=== PATIENT | female | born 1950 | race Caucasian/White ===

== ENCOUNTER 2017-05-30 15:49 | Inpatient (IN) | payer MEDICARE, OTHER ==
[2017-05-30] MEDS ORDERED: Sodium Chloride 0.9% 1,000 ML IV ONE (17:04)
[2017-05-30] MEDS ORDERED: Sodium Chloride 0.9% 10 ML Syringe FLUSH PRN ×2 (17:04→18:23)
[2017-05-30] MEDS ORDERED: Diatrizoate Meglumine/Diatrizoate Sodium 37% 120 ML Bottle PO ONE (18:23)
[2017-05-30] MEDS ORDERED: Iopamidol 612 MG/ML 150 ML Bottle IVPUSH ONE (18:23)
--- NOTE | 2017-05-30 18:45 | EDM.PDOC ---
ED HPI GENERAL MEDICAL PROBLEM - General Chief Complaint: Abdominal Pain Stated Complaint: LOWER ABDOMINAL PAIN Time Seen by Provider: 05/30/17 16:35 Source of Information: Reports: Patient History Limitations: Reports: No Limitations - History of Present Illness INITIAL COMMENTS - FREE TEXT/NARRATIVE: 66-year-old female female presents for evaluation and treatment of right lower quadrant abdominal pain. Patient reports that the abdominal pain started yesterday. She states that Wednesday she did not feel well. She reports that over the weekend she was helping her son move. She was more active then normal. She reports that the pain is worse with movement. She reports she had a temperature last night of 99. She states that the pain is located in her right lower quadrant. She reports last night she had difficulty sleeping to the due to the pain. States even her legs or even bothering her. She reports associated symptoms of decreased appetite, nausea and fatigue. She denies any vomiting, diarrhea, melena, hematochezia, dysuria or hematuria. She reports that her last bowel movement was today. No previous surgeries to her abdomen. She has only had about 2 tablespoons of eggs this morning around 6:30. Otherwise she has not had anything to eat today. 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 Location: Reports: Abdomen Improves with: Reports: Immobilization Worsens with: Reports: Movement Associated Symptoms: Reports: Loss of Appetite, Nausea/Vomiting Right Lower Abdomen Pain Score (Numeric/FACES): 1 - Related Data Allergies Allergy/AdvReac Type Severity Reaction Status Date / Time No Known Allergies Allergy Verified 10/15/14 12:59 Home Meds: Home Meds Multivitamin [Multi-Vitamin Daily] 1 tab PO DAILY 05/30/17 [History] Past Medical History Hematologic History: Reports: Other (See Below) Other Hematologic History: Vitamin D deficiency - Past Surgical History Neurological Surgical History: Reports: Other (See Below) Other Neurological Surgeries/Procedures: cyst removed from brain Social & Family History - Tobacco Use Smoking Status *Q: Former Smoker Used Tobacco, but Quit: Yes Month Tobacco Last Used: 2015 - Recreational Drug Use Recreational Drug Use: No ED ROS GENERAL - Review of Systems Review Of Systems: See Below Constitutional: Reports: Chills, Fatigue, Decreased Appetite GI/Abdominal: Reports: Abdominal Pain, Nausea. Denies: Constipation, Diarrhea, Hematochezia, Melena, Vomiting : Reports: No Symptoms. Denies: Dysuria, Flank Pain, Hematuria ED EXAM, GI/ABD - Physical Exam Exam: See Below Exam Limited By: No Limitations General Appearance: Alert, WD/WN, No Apparent Distress Respiratory/Chest: No Respiratory Distress, Lungs Clear, Normal Breath Sounds Cardiovascular: Normal Peripheral Pulses, Regular Rate, Rhythm, No Murmur GI/Abdominal: Normal Bowel Sounds, Soft, Tenderness (RLQ), Guarding, McBurney's Sign, Psoas Sign, Obturator Sign Neurological: Alert, Oriented, Normal Cognition Psychiatric: Normal Affect, Normal Mood Skin Exam: Warm, Dry, Normal Color Course - Vital Signs Last Recorded V/S: Last Vital Signs Temp 37.2 C 05/30/17 16:01 Pulse 74 05/30/17 16:01 Resp 16 05/30/17 16:01 BP 121/61 05/30/17 16:01 Pulse Ox 96 05/30/17 16:01 - Orders/Labs/Meds Orders: Active Orders 24 hr Category Date Time Status Communication Order [RC] ROUTINE Care 05/30/17 20:09 Active Patient to Empty Bladder [RC] ASDIRECTED Care 05/30/17 20:09 Active Peripheral IV Care [RC] . DIRECTED Care 05/30/17 17:04 Active Verify Patient Consent Obtain [RC] ASDIRECTED Care 05/30/17 20:09 Active Nothing Per Oral Diet [DIET] Diet 05/30/17 Dinner Active Abdomen Pelvis w Cont [CT] Stat Exams 05/30/17 17:04 Taken Lactated Ringers [Ringers, Lactated] 1,000 ml Med 05/30/17 19:54 Active IV .BOLUS Sodium Chloride 0.9% [Saline Flush] Med 05/30/17 17:04 Active 10 ml FLUSH ASDIRECTED PRN Sodium Chloride 0.9% [Saline Flush] Med 05/30/17 18:23 Active 10 ml FLUSH ONETIME PRN Peripheral IV Insertion Adult [OM.PC] Routine Oth 05/30/17 17:04 Ordered Resuscitation Status Routine Resus Stat 05/30/17 20:09 Ordered Medication Orders Lactated Ringer's (Ringers, Lactated) 1,000 mls @ 100 mls/hr IV .BOLUS ONE Stop: 05/31/17 05:53 Last Admin: 05/30/17 20:15 Dose: 100 mls/hr Sodium Chloride (Saline Flush) 10 ml FLUSH ASDIRECTED PRN PRN Reason: Keep Vein Open Last Admin: 05/30/17 17:22 Dose: 10 ml Sodium Chloride (Saline Flush) 10 ml FLUSH ONETIME PRN PRN Reason: IV FLUSH Last Admin: 05/30/17 18:52 Dose: 10 ml Labs: Laboratory Tests 05/30/17 05/30/17 05/30/17 Range/Units 16:13 16:13 18:39 WBC 16.56 H (3.98-10.04) K/mm3 RBC 4.36 (3.98-5.22) M/mm3 Hgb 13.3 (11.2-15.7) gm/L Hct 40.3 (34.1-44.9) % MCV 92.4 (79.4-94.8) fl MCH 30.5 (25.6-32.2) pg MCHC 33.0 (32.2-35.5) g/dl RDW Std Deviation 45.8 (36.4-46.3) fL Plt Count 176 L (182-369) K/mm3 MPV 11.0 (9.4-12.3) fl Neutrophils % (Manual) 72 H (40-60) % Band Neutrophils % 0 (0-10) % Lymphocytes % (Manual) 20 (20-40) % Atypical Lymphs % 0 % Monocytes % (Manual) 8 (2-10) % Eosinophils % (Manual) 0 L (0.7-5.8) % Basophils % (Manual) 0 L (0.1-1.2) Platelet Estimate Adequate RBC Morph Comment Normal Sodium 136 (136-145) mEq/L Potassium 3.6 (3.5-5.1) mEq/L Chloride 100 (98-107) mEq/L Carbon Dioxide 29 (21-32) mEq/L Anion Gap 10.6 (5-15) BUN 10 (7-18) mg/dL Creatinine 0.9 (0.55-1.02) mg/dL Est Cr Clr Drug Dosing 47.97 mL/min Estimated GFR (MDRD) > 60 (>60) mL/min BUN/Creatinine Ratio 11.1 L (14-18) Glucose 122 H (80-115) mg/dL Calcium 8.7 (8.5-10.1) mg/dL Total Bilirubin 0.4 (0.2-1.0) mg/dL AST 18 (15-37) U/L ALT 21 (14-59) U/L Alkaline Phosphatase 76 (46-116) U/L C-Reactive Protein 18.3 H* (<1.0) mg/dL Total Protein 7.8 (6.4-8.2) g/dl Albumin 3.4 (3.4-5.0) g/dl Globulin 4.4 gm/dL Albumin/Globulin Ratio 0.8 L (1-2) Urine Color Light yellow (Yellow) Urine Appearance Clear (Clear) Urine pH 7.0 (5.0-8.0) Ur Specific [place] 1.015 (1.005-1.030) Urine Protein Negative (Negative) Urine Glucose (UA) Negative (Negative) Urine Ketones Negative (Negative) Urine Occult Blood Trace-lysed H (Negative) Urine Nitrite Negative (Negative) Urine Bilirubin Negative (Negative) Urine Urobilinogen 0.2 (0.2-1.0) Ur Leukocyte Esterase Negative (Negative) Urine RBC 0-5 (0-5) /hpf Urine WBC 0-5 (0-5) /hpf Ur Epithelial Cells 0-5 (0-5) /hpf Urine Bacteria Occasional (FEW) /hpf Urine Mucus Not seen (FEW) /hpf Meds: Medications Generic Name Dose Route Start Last Admin Trade Name Freq PRN Reason Stop Dose Admin Lactated Ringer's 1,000 mls @ 100 mls/hr 05/30/17 19:54 05/30/17 20:15 Ringers, Lactated IV 05/31/17 05:53 100 mls/hr .BOLUS ONE Administration Sodium Chloride 10 ml 05/30/17 17:04 05/30/17 17:22 Saline Flush FLUSH 10 ml ASDIRECTED PRN Administration Keep Vein Open Sodium Chloride 10 ml 05/30/17 18:23 05/30/17 18:52 Saline Flush FLUSH 10 ml ONETIME PRN Administration IV FLUSH Discontinued Medications Generic Name Dose Route Start Last Admin Trade Name Freq PRN Reason Stop Dose Admin Diatrizoate Meglum/Diatrizoate Sod 90 ml 05/30/17 18:23 05/30/17 18:52 Gastrografin 37% PO 05/30/17 18:24 90 ml ONETIME ONE Administration Sodium Chloride 1,000 mls @ 999 mls/hr 05/30/17 17:04 05/30/17 17:22 Normal Saline IV 05/30/17 18:04 999 mls/hr ONETIME ONE Administration Cefoxitin Sodium 2 gm/ Sodium 100 mls @ 200 mls/hr 05/30/17 19:46 05/30/17 20 :22 Chloride IV 05/30/17 20:15 Not Given ONETIME ONE Cefoxitin Sodium Confirm 05/30/17 19:56 05/30/17 20:22 Mefoxin In Dextrose,Iso-Osm 2 Gm/50 Ml Administered 05/30/17 19:57 Not Given Dose 50 mls @ as directed .ROUTE .STK-MED ONE Cefoxitin Sodium 2 gm/ Premix 50 mls @ 100 mls/hr 05/30/17 19:56 05/30/17 20: 16 IV 05/30/17 20:25 100 mls/hr ONETIME ONE Administration Iopamidol 125 ml 05/30/17 18:23 05/30/17 18:51 Isovue-300 (61%) IVPUSH 05/30/17 18:24 125 ml ONETIME ONE Administration Metoclopramide HCl 5 mg 05/30/17 19:48 05/30/17 20:13 Reglan IVPUSH 05/30/17 19:49 5 mg ONETIME ONE Administration - Radiology Interpretation Free Text/Narrative:: CT of the abdomen and pelvis with IV and oral contrast impression per Vrad: acute appendicitis, suspected to be ruptured, no evidence of free air/ perforation or abscess formation. Mild bladder wall thickening. This is non-specific finding but can be seen with cystitis. Recommend clinical correlation. Incidental 3.2 cm left ovarian adnexal cystic lesion. 3.2 cm left ovarian/ adnexal cystic lesion. This has a density higher than expected for a simple cyst. It could represent a mildly complex cyst. Follow-up pelvic ultrasound is recommended for further evaluation, not necessarily on an emergent basis. CT Results Date: 05/30/17 - Re-Assessments/Exams Free Text/Narrative Re-Assessment/Exam: 05/30/17 19:48 Labs returned. White blood cell count is 16.56 with no bands, hemoglobin is 13.3 and platelets are 176. Sodium is 136, potassium 3.6 chloride is 100. Anion gap is 10.6. Glucose is 122. CRP is elevated 18.3. UA has trace I have asked the patient several times over the course of her ER stay she would like anything for pain. She continues to decline any medication for pain. I reviewed the CT results with the patient. She has now vomited. We will give 5 mg IV Reglan. Spoke with Dr. Hutchinson, surgeon cushion former. Asked for 2 g IV cefoxitin. Will call in the OR crew and plan for an appendectomy. Departure - Departure Time of Disposition: 21:04 Disposition: Refer to Observation Condition: Serious Clinical Impression: Left ovarian cyst Appendicitis, acute Qualifiers: Acute appendicitis type: with localized peritonitis Qualified Code(s): K35.3 - Acute appendicitis with localized peritonitis - Discharge Information Forms: ED Department Discharge Additional Instructions: Patient will go to the OR tonight for an acute appendicitis. Dr. Hutchinson has been notified and is at the bedside evaluating the patient. I will have her follow-up her primary care provider as soon she is able to for the ultrasound of the left ovarian cyst. - My Orders Last 24 Hours: My Active Orders 05/30/17 17:04 Peripheral IV Care [RC] . DIRECTED Abdomen Pelvis w Cont [CT] Stat Sodium Chloride 0.9% [Saline Flush] 10 ml FLUSH ASDIRECTED PRN Peripheral IV Insertion Adult [OM.PC] Routine 05/30/17 18:23 Sodium Chloride 0.9% [Saline Flush] 10 ml FLUSH ONETIME PRN 05/30/17 19:54 Lactated Ringers [Ringers, Lactated] 1,000 ml IV .BOLUS - Assessment/Plan Last 24 Hours: My Active Orders 05/30/17 17:04 Peripheral IV Care [RC] . DIRECTED Abdomen Pelvis w Cont [CT] Stat Sodium Chloride 0.9% [Saline Flush] 10 ml FLUSH ASDIRECTED PRN Peripheral IV Insertion Adult [OM.PC] Routine 05/30/17 18:23 Sodium Chloride 0.9% [Saline Flush] 10 ml FLUSH ONETIME PRN 05/30/17 19:54 Lactated Ringers [Ringers, Lactated] 1,000 ml IV .BOLUS
[2017-05-30] MEDS ORDERED: cefOXitin 2 GM in Sodium Chloride 0.9% 100 ML IV ONE (19:46)
[2017-05-30] MEDS ORDERED: Metoclopramide 10 MG/2 ML SDV IVPUSH ONE (19:48)
[2017-05-30] MEDS ORDERED: Lactated Ringers 1,000 ML IV ONE (19:54)
[2017-05-30] MEDS ORDERED: cefOXitin 2 GM in Premix Bag 1 BAG IV ONE (19:56)
--- NOTE | 2017-05-30 20:15 | PCM.HP ---
H&P History of Present Illness - General Date of Service: 05/30/17 Source of Information: Patient History Limitations: Reports: No Limitations - History of Present Illness Initial Comments - Free Text/Narative: 66-year-old female was in her usual state of good health until yesterday when she experienced periumbilical crampy discomfort and nausea. She lost her appetite, and over the next several hours she noticed that the pain migrated to her right lower quadrant. She had mild nausea overnight. She had her first episode of emesis today. She's had very little to eat all day. She's had no history of diarrhea or constipation. Because she failed to improve she presented to the emergency room. A CT scan of her abdomen was performed and had imaging features consistent with acute possible perforated appendicitis. Her white blood cell count is 16,000. I was asked to see her in consultation. Right Lower Abdomen Pain Score (Numeric/FACES): 1 - Related Data Allergies/Adverse Reactions: Allergies Allergy/AdvReac Type Severity Reaction Status Date / Time No Known Allergies Allergy Verified 10/15/14 12:59 Home Medications: Home Meds Multivitamin [Multi-Vitamin Daily] 1 tab PO DAILY 05/30/17 [History] Past Medical History Hematologic History: Reports: Other (See Below) Other Hematologic History: Vitamin D deficiency - Past Surgical History Neurological Surgical History: Reports: Other (See Below) Other Neurological Surgeries/Procedures: cyst removed from brain Social & Family History - Tobacco Use Smoking Status *Q: Former Smoker Used Tobacco, but Quit: Yes Month Tobacco Last Used: 2015 - Recreational Drug Use Recreational Drug Use: No H&P Review of Systems - Review of Systems: Review Of Systems: See Below Gastrointestinal: Reports: Abdominal Pain Exam - Exam Exam: See Below - Vital Signs Vital Signs: Last Vital Signs Temp 37.2 C 05/30/17 16:01 Pulse 74 05/30/17 16:01 Resp 16 05/30/17 16:01 BP 121/61 05/30/17 16:01 Pulse Ox 96 05/30/17 16:01 Weight: 68.039 kg - Exam General: Alert, Oriented, Mild Distress HEENT: Conjunctiva Clear, EOMI, Hearing Intact Neck: Supple, Trachea Midline Lungs: Normal Respiratory Effort Cardiovascular: Regular Rate, Regular Rhythm Abdomen: Soft, McBurney's Sign (Female) Exam: Deferred Rectal (Female) Exam: Deferred Back Exam: Full Range of Motion Extremities: Normal Inspection Skin: Warm, Dry, Intact Neuro Extensive - Mental Status: Alert, Oriented x3, Normal Mood/Affect Psychiatric: Normal Affect - Patient Data Lab Results Last 24 hrs: Laboratory Results - last 24 hr 05/30/17 05/30/17 05/30/17 Range/Units 16:13 16:13 18:39 WBC 16.56 H (3.98-10.04) K/mm3 RBC 4.36 (3.98-5.22) M/mm3 Hgb 13.3 (11.2-15.7) gm/L Hct 40.3 (34.1-44.9) % MCV 92.4 (79.4-94.8) fl MCH 30.5 (25.6-32.2) pg MCHC 33.0 (32.2-35.5) g/dl RDW Std Deviation 45.8 (36.4-46.3) fL Plt Count 176 L (182-369) K/mm3 MPV 11.0 (9.4-12.3) fl Neutrophils % (Manual) 72 H (40-60) % Band Neutrophils % 0 (0-10) % Lymphocytes % (Manual) 20 (20-40) % Atypical Lymphs % 0 % Monocytes % (Manual) 8 (2-10) % Eosinophils % (Manual) 0 L (0.7-5.8) % Basophils % (Manual) 0 L (0.1-1.2) Platelet Estimate Adequate RBC Morph Comment Normal Sodium 136 (136-145) mEq/L Potassium 3.6 (3.5-5.1) mEq/L Chloride 100 (98-107) mEq/L Carbon Dioxide 29 (21-32) mEq/L Anion Gap 10.6 (5-15) BUN 10 (7-18) mg/dL Creatinine 0.9 (0.55-1.02) mg/dL Est Cr Clr Drug Dosing 47.97 mL/min Estimated GFR (MDRD) > 60 (>60) mL/min BUN/Creatinine Ratio 11.1 L (14-18) Glucose 122 H (80-115) mg/dL Calcium 8.7 (8.5-10.1) mg/dL Total Bilirubin 0.4 (0.2-1.0) mg/dL AST 18 (15-37) U/L ALT 21 (14-59) U/L Alkaline Phosphatase 76 (46-116) U/L C-Reactive Protein 18.3 H* (<1.0) mg/dL Total Protein 7.8 (6.4-8.2) g/dl Albumin 3.4 (3.4-5.0) g/dl Globulin 4.4 gm/dL Albumin/Globulin Ratio 0.8 L (1-2) Urine Color Light yellow (Yellow) Urine Appearance Clear (Clear) Urine pH 7.0 (5.0-8.0) Ur Specific [place] 1.015 (1.005-1.030) Urine Protein Negative (Negative) Urine Glucose (UA) Negative (Negative) Urine Ketones Negative (Negative) Urine Occult Blood Trace-lysed H (Negative) Urine Nitrite Negative (Negative) Urine Bilirubin Negative (Negative) Urine Urobilinogen 0.2 (0.2-1.0) Ur Leukocyte Esterase Negative (Negative) Urine RBC 0-5 (0-5) /hpf Urine WBC 0-5 (0-5) /hpf Ur Epithelial Cells 0-5 (0-5) /hpf Urine Bacteria Occasional (FEW) /hpf Urine Mucus Not seen (FEW) /hpf Result Diagrams: 05/30/17 16:13 05/30/17 16:13 *Q Meaningful Use (ADM) - VTE *Q VTE Criteria *Q: - Stroke *Q Stroke Criteria *Q: - AMI *Q AMI Criteria *Q: - Problem List (1) Appendicitis, acute SNOMED Code(s): 52634797 ICD Code: K35.80 - UNSPECIFIED ACUTE APPENDICITIS Status: Acute Priority : High Current Visit: Yes Qualifiers: Acute appendicitis type: with localized peritonitis Qualified Code(s): K35.3 - Acute appendicitis with localized peritonitis Problem List Initiated/Reviewed/Updated: Yes Orders Last 24hrs: Active Orders 24 hr Category Date Time Status Communication Order [RC] ROUTINE Care 05/30/17 20:09 Ordered Patient to Empty Bladder [RC] ASDIRECTED Care 05/30/17 20:09 Ordered Peripheral IV Care [RC] . DIRECTED Care 05/30/17 17:04 Active Verify Patient Consent Obtain [RC] ASDIRECTED Care 05/30/17 20:09 Ordered Nothing Per Oral Diet [DIET] Diet 05/30/17 Dinner Ordered Abdomen Pelvis w Cont [CT] Stat Exams 05/30/17 17:04 Taken Lactated Ringers [Ringers, Lactated] 1,000 ml Med 05/30/17 19:54 Active IV .BOLUS Sodium Chloride 0.9% [Saline Flush] Med 05/30/17 17:04 Active 10 ml FLUSH ASDIRECTED PRN Sodium Chloride 0.9% [Saline Flush] Med 05/30/17 18:23 Active 10 ml FLUSH ONETIME PRN cefOXitin [Mefoxin in Dextrose,Iso-Osm 2 GM/50 ML] 2 gm Med 05/30/17 19:56 Active Premix Bag 1 bag IV ONETIME Peripheral IV Insertion Adult [OM.PC] Routine Oth 05/30/17 17:04 Ordered Resuscitation Status Routine Resus Stat 05/30/17 20:09 Ordered Medication Orders Lactated Ringer's (Ringers, Lactated) 1,000 mls @ 100 mls/hr IV .BOLUS ONE Stop: 05/31/17 05:53 Cefoxitin Sodium 2 gm/ Premix 50 mls @ 100 mls/hr IV ONETIME ONE Stop: 05/30/17 20:25 Sodium Chloride (Saline Flush) 10 ml FLUSH ASDIRECTED PRN PRN Reason: Keep Vein Open Last Admin: 05/30/17 17:22 Dose: 10 ml Sodium Chloride (Saline Flush) 10 ml FLUSH ONETIME PRN PRN Reason: IV FLUSH Last Admin: 05/30/17 18:52 Dose: 10 ml Assessment/Plan Comment:: imp: Acute possible perforated appendicitis. Surgery indicated. We'll proceed as soon as possible. plan: Laparoscopic possible open appendectomy. The benefits and risk of the procedure were explained the patient. The alternatives were discussed as well. She and her have both asked me to proceed. They had no further questions.
[2017-05-30] MEDS ORDERED: Bupivacaine 0.5%/EPINEPHrine 1:200,000 50 ML MDV ONE (21:09)
[2017-05-30] MEDS ORDERED: Lidocaine 1% with EPINEPHrine 1:100,000 20 ML MDV ONE (21:09)
--- NOTE | 2017-05-30 21:59 | PCM.PREANE ---
Preanesthetic Assessment - Anesthesia/Transfusion/Family Hx Anesthesia History: Prior Anesthesia Without Reaction Family History of Anesthesia Reaction: No Transfusion History: No Prior Transfusion(s) - Review of Systems General: Chills Pulmonary: No Symptoms Cardiovascular: No Symptoms Gastrointestinal: Abdominal pain (2 days) Neurological: No Symptoms Other: Reports: None - Physical Assessment NPO Status Date: 05/30/17 NPO Status Time: 16:00 (1815 finished contrast) O2 Sat by Pulse Oximetry: 96 Respiratory Rate: 16 Vital Signs: Last Vital Signs Temp 99.0 F 05/30/17 16:01 Pulse 74 05/30/17 16:01 Resp 16 05/30/17 16:01 BP 121/61 05/30/17 16:01 Pulse Ox 96 05/30/17 16:01 Height: 5 ft 2 in Weight: 68.039 kg ASA Class: 2E Mental Status: Alert & Oriented x3 Airway Class: Mallampati = 1 Dentition: Reports: Normal Dentition, Broken Tooth/Teeth, Missing Tooth/Teeth Thyro-Mental Finger Breadths: 3 Mouth Opening Finger Breadths: 3 ROM/Head Extension: Full Lungs: Clear to auscultation, Normal respiratory effort Cardiovascular: Regular Rate, Regular Rhythm - Lab Values: Laboratory Last Values WBC 16.56 K/mm3 (3.98-10.04) H 05/30/17 16:13 RBC 4.36 M/mm3 (3.98-5.22) 05/30/17 16:13 Hgb 13.3 gm/L (11.2-15.7) 05/30/17 16:13 Hct 40.3 % (34.1-44.9) 05/30/17 16:13 MCV 92.4 fl (79.4-94.8) 05/30/17 16:13 MCH 30.5 pg (25.6-32.2) 05/30/17 16:13 MCHC 33.0 g/dl (32.2-35.5) 05/30/17 16:13 RDW Std Deviation 45.8 fL (36.4-46.3) 05/30/17 16:13 Plt Count 176 K/mm3 (182-369) L 05/30/17 16:13 MPV 11.0 fl (9.4-12.3) 05/30/17 16:13 Neutrophils % (Manual) 72 % (40-60) H 05/30/17 16:13 Band Neutrophils % 0 % (0-10) 05/30/17 16:13 Lymphocytes % (Manual) 20 % (20-40) 05/30/17 16:13 Atypical Lymphs % 0 % 05/30/17 16:13 Monocytes % (Manual) 8 % (2-10) 05/30/17 16:13 Eosinophils % (Manual) 0 % (0.7-5.8) L 05/30/17 16:13 Basophils % (Manual) 0 (0.1-1.2) L 05/30/17 16:13 Platelet Estimate Adequate 05/30/17 16:13 RBC Morph Comment Normal 05/30/17 16:13 Sodium 136 mEq/L (136-145) 05/30/17 16:13 Potassium 3.6 mEq/L (3.5-5.1) 05/30/17 16:13 Chloride 100 mEq/L (98-107) 05/30/17 16:13 Carbon Dioxide 29 mEq/L (21-32) 05/30/17 16:13 Anion Gap 10.6 (5-15) 05/30/17 16:13 BUN 10 mg/dL (7-18) 05/30/17 16:13 Creatinine 0.9 mg/dL (0.55-1.02) 05/30/17 16:13 Est Cr Clr Drug Dosing 47.97 mL/min 05/30/17 16:13 Estimated GFR (MDRD) > 60 mL/min (>60) 05/30/17 16:13 BUN/Creatinine Ratio 11.1 (14-18) L 05/30/17 16:13 Glucose 122 mg/dL (80-115) H 05/30/17 16:13 Calcium 8.7 mg/dL (8.5-10.1) 05/30/17 16:13 Total Bilirubin 0.4 mg/dL (0.2-1.0) 05/30/17 16:13 AST 18 U/L (15-37) 05/30/17 16:13 ALT 21 U/L (14-59) 05/30/17 16:13 Alkaline Phosphatase 76 U/L (46-116) 05/30/17 16:13 C-Reactive Protein 18.3 mg/dL (<1.0) H* 05/30/17 16:13 Total Protein 7.8 g/dl (6.4-8.2) 05/30/17 16:13 Albumin 3.4 g/dl (3.4-5.0) 05/30/17 16:13 Globulin 4.4 gm/dL 05/30/17 16:13 Albumin/Globulin Ratio 0.8 (1-2) L 05/30/17 16:13 Urine Color Light yellow (Yellow) 05/30/17 18:39 Urine Appearance Clear (Clear) 05/30/17 18:39 Urine pH 7.0 (5.0-8.0) 05/30/17 18:39 Ur Specific [place] 1.015 (1.005-1.030) 05/30/17 18:39 Urine Protein Negative (Negative) 05/30/17 18:39 Urine Glucose (UA) Negative (Negative) 05/30/17 18:39 Urine Ketones Negative (Negative) 05/30/17 18:39 Urine Occult Blood Trace-lysed (Negative) H 05/30/17 18:39 Urine Nitrite Negative (Negative) 05/30/17 18:39 Urine Bilirubin Negative (Negative) 05/30/17 18:39 Urine Urobilinogen 0.2 (0.2-1.0) 05/30/17 18:39 Ur Leukocyte Esterase Negative (Negative) 05/30/17 18:39 Urine RBC 0-5 /hpf (0-5) 05/30/17 18:39 Urine WBC 0-5 /hpf (0-5) 05/30/17 18:39 Ur Epithelial Cells 0-5 /hpf (0-5) 05/30/17 18:39 Urine Bacteria Occasional /hpf (FEW) 05/30/17 18:39 Urine Mucus Not seen /hpf (FEW) 05/30/17 18:39 - Imaging/EKG Impressions: 05/30/17 EKG SR Rate 89 - Allergies Allergies/Adverse Reactions: Allergies Allergy/AdvReac Type Severity Reaction Status Date / Time No Known Allergies Allergy Verified 10/15/14 12:59 - Blood Blood Available: No - Acknowledgements Anesthesia Type Planned: General Anesthesia Pt an Appropriate Candidate for the Planned Anesthesia: Yes Alternatives and Risks of Anesthesia Discussed w Pt/Guardian: Yes Pt/Guardian Understands and Agrees with Anesthesia Plan: Yes PreAnesthesia Questionnaire Cardiovascular History: Reports: None Respiratory History: Reports: None Musculoskeletal History: Reports: Other (See Below) (siatica both lets at times) Hematologic History: Reports: Other (See Below) Other Hematologic History: Vitamin D deficiency - Past Surgical History Head Surgeries/Procedures: Reports: Other (See Below) (cyst on brain sep 2015 -) Neurological Surgical History: Reports: Other (See Below) Other Neurological Surgeries/Procedures: cyst removed from brain - SUBSTANCE USE Smoking Status *Q: Former Smoker (quit february 2016 50 year smoker) Tobacco Use Within Last Twelve Months: Cigarettes Second Hand Smoke Exposure: No Days Per Week of Alcohol Use: 0 (social) Recreational Drug Use History: No - HOME MEDS Home Medications: Home Meds Multivitamin [Multi-Vitamin Daily] 1 tab PO DAILY 05/30/17 [History] - CURRENT (IN HOUSE) MEDS Current Meds: Current Medications Lactated Ringer's (Ringers, Lactated) 1,000 mls @ 100 mls/hr IV .BOLUS ONE Stop: 05/31/17 05:53 Last Admin: 05/30/17 20:15 Dose: 100 mls/hr Sodium Chloride (Saline Flush) 10 ml FLUSH ASDIRECTED PRN PRN Reason: Keep Vein Open Last Admin: 05/30/17 17:22 Dose: 10 ml Sodium Chloride (Saline Flush) 10 ml FLUSH ONETIME PRN PRN Reason: IV FLUSH Last Admin: 05/30/17 18:52 Dose: 10 ml Discontinued Medications Bupivacaine HCl/Epinephrine Bitart (Marcaine 0.5%/Epinephrine 1:200,000) Confirm Administered Dose 50 ml .ROUTE .STK-MED ONE Stop: 05/30/17 21:10 Diatrizoate Meglum/Diatrizoate Sod (Gastrografin 37%) 90 ml PO ONETIME ONE Stop: 05/30/17 18:24 Last Admin: 05/30/17 18:52 Dose: 90 ml Fentanyl (Sublimaze) Confirm Administered Dose 250 mcg .ROUTE .STK-MED ONE Stop: 05/30/17 22:01 Sodium Chloride (Normal Saline) 1,000 mls @ 999 mls/hr IV ONETIME ONE Stop: 05/30/17 18:04 Last Admin: 05/30/17 17:22 Dose: 999 mls/hr Cefoxitin Sodium 2 gm/ Sodium (Chloride) 100 mls @ 200 mls/hr IV ONETIME ONE Stop: 05/30/17 20:15 Last Admin: 05/30/17 20:22 Dose: Not Given Cefoxitin Sodium (Mefoxin In Dextrose,Iso-Osm 2 Gm/50 Ml) Confirm Administered Dose 50 mls @ as directed .ROUTE .STK-MED ONE Stop: 05/30/17 19:57 Last Admin: 05/30/17 20:22 Dose: Not Given Cefoxitin Sodium 2 gm/ Premix 50 mls @ 100 mls/hr IV ONETIME ONE Stop: 05/30/17 20:25 Last Admin: 05/30/17 20:16 Dose: 100 mls/hr Lidocaine HCl (Xylocaine-Mpf 1%) Confirm Administered Dose 4 mls @ as directed .ROUTE .STK-MED ONE Stop: 05/30/17 22:01 Iopamidol (Isovue-300 (61%)) 125 ml IVPUSH ONETIME ONE Stop: 05/30/17 18:24 Last Admin: 05/30/17 18:51 Dose: 125 ml Lidocaine/Epinephrine (Xylocaine 1% With Epinephrine 1:100,000) Confirm Administered Dose 20 ml .ROUTE .STK-MED ONE Stop: 05/30/17 21:10 Metoclopramide HCl (Reglan) 5 mg IVPUSH ONETIME ONE Stop: 05/30/17 19:49 Last Admin: 05/30/17 20:13 Dose: 5 mg Midazolam HCl (Versed 1 Mg/Ml) Confirm Administered Dose 2 mg .ROUTE .STK-MED ONE Stop: 05/30/17 22:01 Ondansetron HCl (Zofran) Confirm Administered Dose 4 mg .ROUTE .STK-MED ONE Stop: 05/30/17 22:01 Propofol (Diprivan 20 Ml) Confirm Administered Dose 200 mg .ROUTE .STK-MED ONE Stop: 05/30/17 22:01 Rocuronium [place] (Zemuron) Confirm Administered Dose 50 mg .ROUTE .STK-MED ONE Stop: 05/30/17 22:01
[2017-05-30] MEDS ORDERED: Ondansetron 4 MG/2 ML SDV ONE (22:00)
[2017-05-30] MEDS ORDERED: Lidocaine 1% 4 ML ONE (22:00)
[2017-05-30] MEDS ORDERED: Propofol 200 MG/20 ML SDV ONE (22:00)
[2017-05-30] MEDS ORDERED: fentaNYL 250 MCG/5 ML SDV ONE ×2 (22:00→23:49)
[2017-05-30] MEDS ORDERED: Midazolam 1 MG/ML 2 ML SDV ONE (22:00)
[2017-05-30] MEDS ORDERED: Rocuronium 50 MG/5 ML Vial ONE (22:00)
[2017-05-30] MEDS ORDERED: Succinylcholine/Normal Saline 100 MG/5 ML Syringe ONE (22:35)
[2017-05-30] MEDS ORDERED: fentaNYL 100 MCG/2 ML SDV IVPUSH PRN (22:37)
[2017-05-30] MEDS ORDERED: Ondansetron 4 MG/2 ML SDV IVPUSH PRN (22:37)
[2017-05-30] MEDS ORDERED: HYDROmorphone 1 MG/ML Syringe IVPUSH PRN (22:37)
[2017-05-30] MEDS ORDERED: ePHEDrine/Normal Saline 25 MG/5 ML Syringe ONE (22:44)
[2017-05-30] MEDS ORDERED: Phenylephrine/Normal Saline 100 MCG/ML 10 ML Syringe ONE (22:46)
[2017-05-30] MEDS ORDERED: Lactated Ringers 1,000 ML ONE (23:05)
[2017-05-30] MEDS ORDERED: HYDROmorphone 0.5 MG/0.5 ML Syringe IVPUSH PRN (23:11)
[2017-05-30] MEDS ORDERED: HYDROmorphone 1 MG/ML Syringe ONE (23:34)
[2017-05-31] MEDS ORDERED: Neostigmine Methylsulfate 1 MG/ML 5 ML Syringe ONE (00:09)
[2017-05-31] MEDS ORDERED: Lactated Ringers 1,000 ML ONE (00:22)
--- NOTE | 2017-05-31 00:40 | PCM.POSTAN ---
POST ANESTHESIA ASSESSMENT - MENTAL STATUS Mental Status: alert, oriented - VITAL SIGNS Pulse Rate: 89 SaO2: 96 Resp Rate: 13 Blood Pressure: 101/67 Temperature: 97.8 F - RESPIRATORY Respiratory Status: respiratory rate WNL, airway patent, O2 saturation stable, supplemental oxygen - CARDIOVASCULAR CV Status: pulse rate WNL, blood pressure stable - GASTROINTESTINAL GI Status: no symptoms - PAIN Pain Score: 0 (denies) - POST OP HYDRATION Hydration Status: adequate & stable
[2017-05-31] MEDS ORDERED: Piperacillin/Tazobactam 4.5 GM in Sodium Chloride 0.9% 100 ML IV ONE (01:00)
--- NOTE | 2017-05-31 01:02 | PCM.OPNOTE ---
- General Post-Op/Procedure Note Date of Surgery/Procedure: 05/31/17 Operative Procedure(s): Laparoscopic exploration followed by conversion to a laparotomy with ileocecectomy and primary stapled [id number] ileal to right colon anastomosis Findings: Short appendiceal gangrenous stump blowout with necrotic cecal base and dense inflammatory reaction of the entire cecum and surrounding soft tissues. There was fecal spillage and local fecal peritonitis as well as a fecalith in the right lower quadrant. There was no eitan purulence seen. Pre Op Diagnosis: Perforated acute appendicitis Post-Op Diagnosis: Perforated gangrenous appendicitis with necrotic cecal base and local fecal peritonitis Anesthesia Technique: General ET tube Primary Surgeon: Parish Hutchinson Pathology: Short stump of ileum and cecum EBL in mLs: 100 Complications: None Condition: Good Free Text/Narrative:: After adequate general endotracheal tube anesthesia was obtained the patient's abdomen was prepped for a laparoscopic appendectomy. A supraumbilical incision was made with a 15 blade followed by insertion of a 12 mm camera port. CO2 pneumoperitoneum was obtained. A 5 mm working port was placed in the suprapubic region and in the left lower quadrant. Exploration revealed dense inflammatory change in the right lower quadrant. With mobilization of the cecum the appendix was not visualized however there was a fecalith and fecal spillage along with dense induration and inflammatory reaction present in the retrocecal area. At this point I opted to convert the procedure to an open case given the necrotic cecal base. Photographs are taken for the patient for the record. The midline incision the lower abdomen was made from just above the umbilicus down to the suprapubic region with a 10 blade. After irrigating the fecal contamination I mobilized the right colon using a combination of blunt finger and Metzenbaum scissor dissection along the white line up to the hepatic flexure and then into the transverse colonic area proximally. Once this was done a window was made in the ileal mesentery and I took a MIL stapler and fired it across this area. [place] up the right colon I then fired the stapling device across the colon as well. The specimen was removed after I took down the mesentery between clamps using 3-0 Vicryl suture to secure the mesenteric vessels. I performed a side-to- side anastomosis between the terminal ileum and right colon. This was done using a MIL 55 linear stapler. The TA 90 stapler was used to close the entry sites. I then took interrupted 3-0 silk sero muscular Lembert sutures to close the TA 90 site. 1 L of warm irrigation fluid was used to rinse out the right lower quadrant. The omentum was packed in the right lower quadrant. The abdomen was irrigated out with saline. I closed the abdominal incision with a running # 1 PDS suture. I placed a 10 mm flat Toney-Myers drain in the subcutaneous tissues bringing it out through a separate stab incision. The drain was secured to the skin with a 2-0 nylon. The skin was closed with jeniffer. Gauze and silk tape were used for the dressing. A Covarrubias was placed at the end of the case. There were no procedural complications.
[2017-05-31] MEDS: Sodium Chloride 0.9% 1,000 ML IV SCH ×3 (02:39→17:54)
[2017-05-31] MEDS: Acetaminophen/oxyCODONE 325-5 MG Tab PO PRN ×3 (05:25→19:26)
[2017-05-31] MEDS: Piperacillin/Tazobactam 4.5 GM in Sodium Chloride 0.9% 100 ML IV SCH ×2 (08:36→16:56)
[2017-05-31] MEDS ORDERED: Pneumococcal Polyvalent-23 Vaccine 0.5 ML SDV IM ONE (08:47)
--- NOTE | 2017-05-31 09:51 | CT ---
CT abdomen and pelvis Technique: Multiple axial sections were obtained through the abdomen and pelvis. Intravenous and oral contrast was utilized. Comparison: No previous abdominal imaging. Findings: Inflammatory change identified within the right lower abdomen. Dilated appendix is seen which contains appendicoliths. Findings are compatible with appendicitis. There is some free fluid within the pelvis which could represent reactive fluid or pus from the appendicitis. Visualized lung bases show nothing acute. Liver shows no focal parenchymal abnormality. Minimal hiatal hernia is seen. Spleen appears within normal limits. Adrenal glands show no nodule. Kidneys show contrast enhancement without hydronephrosis or mass. Pancreas is within normal limits. Aorta and iliac vessels show atherosclerotic change without aneurysmal dilatation. No retroperitoneal adenopathy or mesenteric abnormalities are seen. No additional pelvic abnormality is identified. Delayed images through the bladder show contrast within the distal ureters and bladder. Cystic structure noted within the left ovary measuring 3.2 cm. Bladder wall shows minimal thickening which is likely incidental. Impression: 1. Findings compatible with appendicitis. Small amount of fluid within the pelvis either reactive or possibly due to pus. 2. Small 3.2 cm cyst within the left ovary. Follow-up ultrasound could be obtained of the pelvis in 6 months to further evaluate. 3. Other findings felt to be incidental as described above. Diagnostic code #5 I agree with preliminary report issued by [facility] ([facility] report finalized on 05/30/17, 8:42 PM Central Time)
--- NOTE | 2017-05-31 10:14 | PCM.SURGPN ---
- General Info Date of Service: 05/31/17 POD#: 1 Functional Status: Reports: pain controlled, tolerating diet (Liquids) - Review of Systems Gastrointestinal: Reports: Abdominal pain (Notes surgical site incisional discomfort but the appendiceal discomfort has improved.) - Patient Data Vitals - most recent: Last Vital Signs Temp 36.8 C 05/31/17 07:33 Pulse 95 05/31/17 07:33 Resp 20 05/31/17 07:33 BP 99/59 L 05/31/17 07:33 Pulse Ox 90 L 05/31/17 09:39 Weight - most recent: 68.901 kg I&O - last 24 hours: Intake & Output 05/30/17 05/31/17 05/31/17 22:59 06:59 14:59 Intake Total 703 Output Total 325 Balance 378 Med Orders - Current: Current Medications Hydromorphone HCl (Dilaudid) 0.5 mg IVPUSH Q1H PRN PRN Reason: Pain (severe 7-10) Sodium Chloride (Normal Saline) 1,000 mls @ 125 mls/hr IV ASDIRECTED MELISSA Last Admin: 05/31/17 02:39 Dose: 125 mls/hr Piperacillin Sod/Tazobactam (Sod 4.5 gm/ Sodium Chloride) 100 mls @ 25 mls/hr IV Q8H [facility] Last Admin: 05/31/17 08:36 Dose: 25 mls/hr Ondansetron HCl (Zofran) 4 mg IVPUSH ONETIME PRN PRN Reason: Nausea/Vomiting Ondansetron HCl (Zofran) 4 mg IVPUSH Q6H PRN PRN Reason: Nausea/Vomiting Oxycodone/Acetaminophen (Percocet 325-5 Mg) 2 tab PO Q4H PRN PRN Reason: Pain (moderate 4-6) Last Admin: 05/31/17 05:25 Dose: 2 tab Sodium Chloride (Saline Flush) 10 ml FLUSH ASDIRECTED PRN PRN Reason: Keep Vein Open Last Admin: 05/30/17 17:22 Dose: 10 ml Sodium Chloride (Saline Flush) 10 ml FLUSH ONETIME PRN PRN Reason: IV FLUSH Last Admin: 05/30/17 18:52 Dose: 10 ml Discontinued Medications Bupivacaine HCl/Epinephrine Bitart (Marcaine 0.5%/Epinephrine 1:200,000) Confirm Administered Dose 50 ml .ROUTE .STK-MED ONE Stop: 05/30/17 21:10 Last Admin: 05/30/17 22:36 Dose: 5.5 ml Diatrizoate Meglum/Diatrizoate Sod (Gastrografin 37%) 90 ml PO ONETIME ONE Stop: 05/30/17 18:24 Last Admin: 05/30/17 18:52 Dose: 90 ml Ephedrine Sulfate (Ephedrine In Ns) Confirm Administered Dose 25 mg .ROUTE .STK- MED ONE Stop: 05/30/17 22:45 Fentanyl (Sublimaze) Confirm Administered Dose 250 mcg .ROUTE .STK-MED ONE Stop: 05/30/17 22:01 Fentanyl (Sublimaze) 50 mcg IVPUSH Q5M PRN PRN Reason: Pain Fentanyl (Sublimaze) Confirm Administered Dose 250 mcg .ROUTE .STK-MED ONE Stop: 05/30/17 23:50 Glycopyrrolate () Confirm Administered Dose 1 mg .ROUTE .STK-MED ONE Stop: 05/31/17 00:10 Hydromorphone HCl (Dilaudid) 0.5 mg IVPUSH Q15M PRN PRN Reason: severe pain Stop: 05/30/17 22:53 Hydromorphone HCl (Dilaudid) 0.25 mg IVPUSH Q15M PRN PRN Reason: severe pain Stop: 05/30/17 23:27 Hydromorphone HCl (Dilaudid) Confirm Administered Dose 1 mg .ROUTE .STK-MED ONE Stop: 05/30/17 23:35 Sodium Chloride (Normal Saline) 1,000 mls @ 999 mls/hr IV ONETIME ONE Stop: 05/30/17 18:04 Last Admin: 05/30/17 17:22 Dose: 999 mls/hr Cefoxitin Sodium 2 gm/ Sodium (Chloride) 100 mls @ 200 mls/hr IV ONETIME ONE Stop: 05/30/17 20:15 Last Admin: 05/30/17 20:22 Dose: Not Given Lactated Ringer's (Ringers, Lactated) 1,000 mls @ 100 mls/hr IV .BOLUS ONE Stop: 05/31/17 05:53 Last Admin: 05/30/17 20:15 Dose: 100 mls/hr Cefoxitin Sodium (Mefoxin In Dextrose,Iso-Osm 2 Gm/50 Ml) Confirm Administered Dose 50 mls @ as directed .ROUTE .STK-MED ONE Stop: 05/30/17 19:57 Last Admin: 05/30/17 20:22 Dose: Not Given Cefoxitin Sodium 2 gm/ Premix 50 mls @ 100 mls/hr IV ONETIME ONE Stop: 05/30/17 20:25 Last Admin: 05/30/17 20:16 Dose: 100 mls/hr Lidocaine HCl (Xylocaine-Mpf 1%) Confirm Administered Dose 4 mls @ as directed .ROUTE .STK-MED ONE Stop: 05/30/17 22:01 Lactated Ringer's (Ringers, Lactated) Confirm Administered Dose 1,000 mls @ as directed .ROUTE .STK-MED ONE Stop: 05/30/17 23:06 Lactated Ringer's (Ringers, Lactated) Confirm Administered Dose 1,000 mls @ as directed .ROUTE .STK-MED ONE Stop: 05/31/17 00:23 Piperacillin Sod/Tazobactam (Sod 4.5 gm/ Sodium Chloride) 100 mls @ 200 mls/hr IV ONETIME ONE Stop: 05/31/17 01:29 Last Admin: 05/31/17 02:40 Dose: 200 mls/hr Iopamidol (Isovue-300 (61%)) 125 ml IVPUSH ONETIME ONE Stop: 05/30/17 18:24 Last Admin: 05/30/17 18:51 Dose: 125 ml Lidocaine/Epinephrine (Xylocaine 1% With Epinephrine 1:100,000) Confirm Administered Dose 20 ml .ROUTE .STK-MED ONE Stop: 05/30/17 21:10 Last Admin: 05/30/17 22:36 Dose: 5.5 ml Metoclopramide HCl (Reglan) 5 mg IVPUSH ONETIME ONE Stop: 05/30/17 19:49 Last Admin: 05/30/17 20:13 Dose: 5 mg Midazolam HCl (Versed 1 Mg/Ml) Confirm Administered Dose 2 mg .ROUTE .STK-MED ONE Stop: 05/30/17 22:01 Neostigmine Methylsulfate (Neostigmine) Confirm Administered Dose 5 mg .ROUTE .STK-MED ONE Stop: 05/31/17 00:10 Ondansetron HCl (Zofran) Confirm Administered Dose 4 mg .ROUTE .STK-MED ONE Stop: 05/30/17 22:01 Phenylephrine HCl (Phenylephrine In Ns 100 Mcg/Ml) Confirm Administered Dose 1 mg .ROUTE .STK-MED ONE Stop: 05/30/17 22:47 Pneumococcal Polyvalent Vaccine (Pneumovax 23) 0.5 ml IM .ONCE ONE Stop: 05/31/17 08:48 Propofol (Diprivan 20 Ml) Confirm Administered Dose 200 mg .ROUTE .STK-MED ONE Stop: 05/30/17 22:01 Rocuronium [place] (Zemuron) Confirm Administered Dose 50 mg .ROUTE .STK-MED ONE Stop: 05/30/17 22:01 Succinylcholine Chloride (Succinylcholine In Ns Pf) Confirm Administered Dose 100 mg .ROUTE .STK-MED ONE Stop: 05/30/17 22:36 - Exam Wound/Incisions: dressing dry and intact Abdomen: soft - Problem List & Annotations (1) Appendicitis, acute SNOMED Code(s): 31468062 Code(s): K35.80 - UNSPECIFIED ACUTE APPENDICITIS Status: Acute Priority: High Current Visit: Yes Qualifiers: Acute appendicitis type: with localized peritonitis Qualified Code(s): K35.3 - Acute appendicitis with localized peritonitis - Problem List Review Problem List Initiated/Reviewed/Updated: Yes - My Orders Last 24 Hours: Active Orders 24 hr Category Date Time Status Overnight Pulse Oximetry [Overnight Pulse Oximetry] [ Care 05/31/17 01:25 Active ] Click To Edit Piperacillin/Tazobactam [Zosyn] 4.5 gm Med 05/31/17 09:00 Active Sodium Chloride 0.9% [Normal Saline] 100 ml IV Q8H SCD [Sequential Compression Device] [OM.PC] Routine Oth 05/31/17 02:31 Ordered Medication Orders Hydromorphone HCl (Dilaudid) 0.5 mg IVPUSH Q1H PRN PRN Reason: Pain (severe 7-10) Sodium Chloride (Normal Saline) 1,000 mls @ 125 mls/hr IV ASDIRECTED MELISSA Last Admin: 05/31/17 02:39 Dose: 125 mls/hr Piperacillin Sod/Tazobactam (Sod 4.5 gm/ Sodium Chloride) 100 mls @ 25 mls/hr IV Q8H MELISSA Last Admin: 05/31/17 08:36 Dose: 25 mls/hr Ondansetron HCl (Zofran) 4 mg IVPUSH ONETIME PRN PRN Reason: Nausea/Vomiting Ondansetron HCl (Zofran) 4 mg IVPUSH Q6H PRN PRN Reason: Nausea/Vomiting Oxycodone/Acetaminophen (Percocet 325-5 Mg) 2 tab PO Q4H PRN PRN Reason: Pain (moderate 4-6) Last Admin: 05/31/17 05:25 Dose: 2 tab Sodium Chloride (Saline Flush) 10 ml FLUSH ASDIRECTED PRN PRN Reason: Keep Vein Open Last Admin: 05/30/17 17:22 Dose: 10 ml Sodium Chloride (Saline Flush) 10 ml FLUSH ONETIME PRN PRN Reason: IV FLUSH Last Admin: 05/30/17 18:52 Dose: 10 ml - Assessment Assessment (Free Text/Narrative):: Doing well. - Plan Plan (Free Text/Narrative):: IV antibiotics for several days.
[2017-05-31] MEDS: Ondansetron 4 MG/2 ML SDV IVPUSH PRN (10:33)
--- NOTE | 2017-05-31 15:19 | PCM48HPAN ---
Post Anesthesia Note - EVALUATION WITHIN 48HRS OF ANESTHETIC Vital Signs in Normal Range: Yes Patient Participated in Evaluation: Yes Respiratory Function Stable: Yes Airway Patent: Yes Cardiovascular Function Stable: Yes Hydration Status Stable: Yes Pain Control Satisfactory: Yes Nausea and Vomiting Control Satisfactory: Yes Mental Status Recovered: Yes - COMMENTS/OBSERVATIONS Free Text/Narrative:: encouraged patient to take oral pain pills. She states as long as she stays still the pain is good but if she moves, her abdomen hurts. I told her about the importance of deep breathing, coughing, and ambulating and the need for adequate pain control to perform all of these tasks. Other than that the patient was in good spirits and had no other complaints.
[2017-06-01] MEDS: Piperacillin/Tazobactam 4.5 GM in Sodium Chloride 0.9% 100 ML IV SCH ×3 (01:41→16:56)
[2017-06-01] MEDS: Sodium Chloride 0.9% 1,000 ML IV SCH ×2 (01:41→10:25)
[2017-06-01] MEDS: Acetaminophen/oxyCODONE 325-5 MG Tab PO PRN ×3 (03:17→19:59)
--- NOTE | 2017-06-01 08:28 | PCM.SURGPN ---
- General Info Date of Service: 06/01/17 POD#: 2 Functional Status: Reports: pain controlled, tolerating diet, ambulating, urinating - Review of Systems Pulmonary: Reports: no symptoms Gastrointestinal: Reports: Abdominal pain (Incisional but better), Other (No flatus) - Patient Data Vitals - most recent: Last Vital Signs Temp 37.0 C 06/01/17 08:18 Pulse 80 06/01/17 08:18 Resp 14 06/01/17 08:18 BP 132/94 H 06/01/17 08:18 Pulse Ox 97 06/01/17 08:18 Weight - most recent: 72.688 kg I&O - last 24 hours: Intake & Output 05/31/17 06/01/17 06/01/17 22:59 06:59 14:59 Intake Total 3758 2241 Output Total 500 1960 Balance 3258 281 Med Orders - Current: Current Medications Hydromorphone HCl (Dilaudid) 0.5 mg IVPUSH Q1H PRN PRN Reason: Pain (severe 7-10) Sodium Chloride (Normal Saline) 1,000 mls @ 125 mls/hr IV ASDIRECTED [facility] Last Admin: 06/01/17 01:41 Dose: 125 mls/hr Piperacillin Sod/Tazobactam (Sod 4.5 gm/ Sodium Chloride) 100 mls @ 25 mls/hr IV Q8H [facility] Last Admin: 06/01/17 08:00 Dose: 25 mls/hr Ondansetron HCl (Zofran) 4 mg IVPUSH Q6H PRN PRN Reason: Nausea/Vomiting Last Admin: 05/31/17 10:33 Dose: 4 mg Oxycodone/Acetaminophen (Percocet 325-5 Mg) 2 tab PO Q4H PRN PRN Reason: Pain (moderate 4-6) Last Admin: 06/01/17 08:00 Dose: 2 tab Sodium Chloride (Saline Flush) 10 ml FLUSH ASDIRECTED PRN PRN Reason: Keep Vein Open Last Admin: 05/30/17 17:22 Dose: 10 ml Discontinued Medications Bupivacaine HCl/Epinephrine Bitart (Marcaine 0.5%/Epinephrine 1:200,000) Confirm Administered Dose 50 ml .ROUTE .STK-MED ONE Stop: 05/30/17 21:10 Last Admin: 05/30/17 22:36 Dose: 5.5 ml Diatrizoate Meglum/Diatrizoate Sod (Gastrografin 37%) 90 ml PO ONETIME ONE Stop: 05/30/17 18:24 Last Admin: 05/30/17 18:52 Dose: 90 ml Ephedrine Sulfate (Ephedrine In Ns) Confirm Administered Dose 25 mg .ROUTE .STK- MED ONE Stop: 05/30/17 22:45 Fentanyl (Sublimaze) Confirm Administered Dose 250 mcg .ROUTE .STK-MED ONE Stop: 05/30/17 22:01 Fentanyl (Sublimaze) 50 mcg IVPUSH Q5M PRN PRN Reason: Pain Fentanyl (Sublimaze) Confirm Administered Dose 250 mcg .ROUTE .STK-MED ONE Stop: 05/30/17 23:50 Glycopyrrolate () Confirm Administered Dose 1 mg .ROUTE .STK-MED ONE Stop: 05/31/17 00:10 Hydromorphone HCl (Dilaudid) 0.5 mg IVPUSH Q15M PRN PRN Reason: severe pain Stop: 05/30/17 22:53 Hydromorphone HCl (Dilaudid) 0.25 mg IVPUSH Q15M PRN PRN Reason: severe pain Stop: 05/30/17 23:27 Hydromorphone HCl (Dilaudid) Confirm Administered Dose 1 mg .ROUTE .STK-MED ONE Stop: 05/30/17 23:35 Sodium Chloride (Normal Saline) 1,000 mls @ 999 mls/hr IV ONETIME ONE Stop: 05/30/17 18:04 Last Admin: 05/30/17 17:22 Dose: 999 mls/hr Cefoxitin Sodium 2 gm/ Sodium (Chloride) 100 mls @ 200 mls/hr IV ONETIME ONE Stop: 05/30/17 20:15 Last Admin: 05/30/17 20:22 Dose: Not Given Lactated Ringer's (Ringers, Lactated) 1,000 mls @ 100 mls/hr IV .BOLUS ONE Stop: 05/31/17 05:53 Last Admin: 05/30/17 20:15 Dose: 100 mls/hr Cefoxitin Sodium (Mefoxin In Dextrose,Iso-Osm 2 Gm/50 Ml) Confirm Administered Dose 50 mls @ as directed .ROUTE .STK-MED ONE Stop: 05/30/17 19:57 Last Admin: 05/30/17 20:22 Dose: Not Given Cefoxitin Sodium 2 gm/ Premix 50 mls @ 100 mls/hr IV ONETIME ONE Stop: 05/30/17 20:25 Last Admin: 05/30/17 20:16 Dose: 100 mls/hr Lidocaine HCl (Xylocaine-Mpf 1%) Confirm Administered Dose 4 mls @ as directed .ROUTE .STK-MED ONE Stop: 05/30/17 22:01 Lactated Ringer's (Ringers, Lactated) Confirm Administered Dose 1,000 mls @ as directed .ROUTE .STK-MED ONE Stop: 05/30/17 23:06 Lactated Ringer's (Ringers, Lactated) Confirm Administered Dose 1,000 mls @ as directed .ROUTE .STK-MED ONE Stop: 05/31/17 00:23 Piperacillin Sod/Tazobactam (Sod 4.5 gm/ Sodium Chloride) 100 mls @ 200 mls/hr IV ONETIME ONE Stop: 05/31/17 01:29 Last Admin: 05/31/17 02:40 Dose: 200 mls/hr Iopamidol (Isovue-300 (61%)) 125 ml IVPUSH ONETIME ONE Stop: 05/30/17 18:24 Last Admin: 05/30/17 18:51 Dose: 125 ml Lidocaine/Epinephrine (Xylocaine 1% With Epinephrine 1:100,000) Confirm Administered Dose 20 ml .ROUTE .STK-MED ONE Stop: 05/30/17 21:10 Last Admin: 05/30/17 22:36 Dose: 5.5 ml Metoclopramide HCl (Reglan) 5 mg IVPUSH ONETIME ONE Stop: 05/30/17 19:49 Last Admin: 05/30/17 20:13 Dose: 5 mg Midazolam HCl (Versed 1 Mg/Ml) Confirm Administered Dose 2 mg .ROUTE .STK-MED ONE Stop: 05/30/17 22:01 Neostigmine Methylsulfate (Neostigmine) Confirm Administered Dose 5 mg .ROUTE .STK-MED ONE Stop: 05/31/17 00:10 Ondansetron HCl (Zofran) Confirm Administered Dose 4 mg .ROUTE .STK-MED ONE Stop: 05/30/17 22:01 Ondansetron HCl (Zofran) 4 mg IVPUSH ONETIME PRN PRN Reason: Nausea/Vomiting Phenylephrine HCl (Phenylephrine In Ns 100 Mcg/Ml) Confirm Administered Dose 1 mg .ROUTE .STK-MED ONE Stop: 05/30/17 22:47 Pneumococcal Polyvalent Vaccine (Pneumovax 23) 0.5 ml IM .ONCE ONE Stop: 05/31/17 08:48 Propofol (Diprivan 20 Ml) Confirm Administered Dose 200 mg .ROUTE .STK-MED ONE Stop: 05/30/17 22:01 Rocuronium [place] (Zemuron) Confirm Administered Dose 50 mg .ROUTE .STK-MED ONE Stop: 05/30/17 22:01 Sodium Chloride (Saline Flush) 10 ml FLUSH ONETIME PRN PRN Reason: IV FLUSH Last Admin: 05/30/17 18:52 Dose: 10 ml Succinylcholine Chloride (Succinylcholine In Ns Pf) Confirm Administered Dose 100 mg .ROUTE .STK-MED ONE Stop: 05/30/17 22:36 - Exam Wound/Incisions: dressing dry and intact Abdomen: soft, distension - Problem List & Annotations (1) Appendicitis, acute SNOMED Code(s): 95077722 Code(s): K35.80 - UNSPECIFIED ACUTE APPENDICITIS Status: Acute Priority: High Current Visit: Yes Qualifiers: Acute appendicitis type: with localized peritonitis Qualified Code(s): K35.3 - Acute appendicitis with localized peritonitis - Problem List Review Problem List Initiated/Reviewed/Updated: Yes - My Orders Last 24 Hours: Active Orders 24 hr Category Date Time Status May Shower [RC] ASDIRECTED Care 06/01/17 08:24 Ordered Piperacillin/Tazobactam [Zosyn] 4.5 gm Med 05/31/17 09:00 Active Sodium Chloride 0.9% [Normal Saline] 100 ml IV Q8H Medication Orders Hydromorphone HCl (Dilaudid) 0.5 mg IVPUSH Q1H PRN PRN Reason: Pain (severe 7-10) Sodium Chloride (Normal Saline) 1,000 mls @ 125 mls/hr IV ASDIRECTED [facility] Last Admin: 06/01/17 01:41 Dose: 125 mls/hr Infusion: 06/01/17 01:41 Dose: 125 mls/hr Admin: 05/31/17 17:54 Dose: 125 mls/hr Infusion: 05/31/17 17:54 Dose: 125 mls/hr Admin: 05/31/17 10:21 Dose: 125 mls/hr Infusion: 05/31/17 10:21 Dose: 125 mls/hr Admin: 05/31/17 02:39 Dose: 125 mls/hr Piperacillin Sod/Tazobactam (Sod 4.5 gm/ Sodium Chloride) 100 mls @ 25 mls/hr IV Q8H [facility] Last Admin: 06/01/17 08:00 Dose: 25 mls/hr Infusion: 06/01/17 05:41 Dose: 25 mls/hr Admin: 06/01/17 01:41 Dose: 25 mls/hr Infusion: 05/31/17 20:56 Dose: 25 mls/hr Admin: 05/31/17 16:56 Dose: 25 mls/hr Infusion: 05/31/17 12:36 Dose: 25 mls/hr Admin: 05/31/17 08:36 Dose: 25 mls/hr Ondansetron HCl (Zofran) 4 mg IVPUSH Q6H PRN PRN Reason: Nausea/Vomiting Last Admin: 05/31/17 10:33 Dose: 4 mg Oxycodone/Acetaminophen (Percocet 325-5 Mg) 2 tab PO Q4H PRN PRN Reason: Pain (moderate 4-6) Last Admin: 06/01/17 08:00 Dose: 2 tab Admin: 06/01/17 03:17 Dose: 2 tab Admin: 05/31/17 19:26 Dose: 2 tab Admin: 05/31/17 15:18 Dose: 2 tab Admin: 05/31/17 05:25 Dose: 2 tab Sodium Chloride (Saline Flush) 10 ml FLUSH ASDIRECTED PRN PRN Reason: Keep Vein Open Last Admin: 05/30/17 17:22 Dose: 10 ml - Assessment Assessment (Free Text/Narrative):: imp: Intermittent desaturation on room air into the upper 80s. Patient has no shortness of breath or dyspnea on exertion with this. She finds the nasal cannula to be uncomfortable. I suspect that the desaturations are due to atelectasis perhaps a mild fluid overload as she did get a fair amount of volume during the procedure. I will turn down her IV rate today and give her a trial of Lasix in the morning. - Plan Plan (Free Text/Narrative):: See orders. Continue IV antibiotics.
[2017-06-01] MEDS: Ondansetron 4 MG/2 ML SDV IVPUSH PRN ×2 (10:29→20:16)
[2017-06-02] MEDS: Piperacillin/Tazobactam 4.5 GM in Sodium Chloride 0.9% 100 ML IV SCH ×3 (00:36→16:50)
[2017-06-02] MEDS ORDERED: Furosemide 20 MG Tab PO ONE (08:28)
[2017-06-02] MEDS: Ondansetron 4 MG/2 ML SDV IVPUSH PRN (08:32)
[2017-06-02] MEDS: Acetaminophen/oxyCODONE 325-5 MG Tab PO PRN (08:33)
[2017-06-02] MEDS ORDERED: Scopolamine 1.5 MG Transdermal Patch TRDERM PRN (12:00)
[2017-06-02] MEDS: Sodium Chloride 0.9% 1,000 ML IV SCH (12:31)
[2017-06-02] MEDS: HYDROmorphone 0.5 MG/0.5 ML Syringe IVPUSH PRN ×2 (13:19→19:21)
--- NOTE | 2017-06-02 14:06 | PCM.SURGPN ---
- General Info Date of Service: 06/02/17 Functional Status: Reports: Pain Controlled - Review of Systems Gastrointestinal: Reports: Nausea, Vomiting, Other (No flatus) - Patient Data Vitals - most recent: Last Vital Signs Temp 37.2 C 06/02/17 11:36 Pulse 69 06/02/17 11:36 Resp 14 06/02/17 11:36 BP 102/69 06/02/17 11:36 Pulse Ox 96 06/02/17 11:36 Weight - most recent: 74.707 kg I&O - last 24 hours: Intake & Output 06/01/17 06/02/17 06/02/17 22:59 06:59 14:59 Intake Total 2037 1270 240 Output Total 902 1350 Balance 1135 -80 240 Med Orders - Current: Current Medications Hydromorphone HCl (Dilaudid) 0.5 mg IVPUSH Q1H PRN PRN Reason: Pain (severe 7-10) Last Admin: 06/02/17 13:19 Dose: 0.5 mg Piperacillin Sod/Tazobactam (Sod 4.5 gm/ Sodium Chloride) 100 mls @ 25 mls/hr IV Q8H [facility] Last Admin: 06/02/17 08:29 Dose: 25 mls/hr Miscellaneous Information (Remove Patch) 0 ea TRDERM Q72H [facility] Ondansetron HCl (Zofran) 4 mg IVPUSH Q6H PRN PRN Reason: Nausea/Vomiting Last Admin: 06/02/17 08:32 Dose: 4 mg Oxycodone/Acetaminophen (Percocet 325-5 Mg) 2 tab PO Q4H PRN PRN Reason: Pain (moderate 4-6) Last Admin: 06/02/17 08:33 Dose: 2 tab Scopolamine (Transderm-Scop) 1.5 mg TRDERM Q72H PRN PRN Reason: Nausea/Vomiting Last Admin: 06/02/17 13:18 Dose: 1.5 mg Sodium Chloride (Saline Flush) 10 ml FLUSH ASDIRECTED PRN PRN Reason: Keep Vein Open Last Admin: 05/30/17 17:22 Dose: 10 ml Discontinued Medications Bupivacaine HCl/Epinephrine Bitart (Marcaine 0.5%/Epinephrine 1:200,000) Confirm Administered Dose 50 ml .ROUTE .STK-MED ONE Stop: 05/30/17 21:10 Last Admin: 05/30/17 22:36 Dose: 5.5 ml Diatrizoate Meglum/Diatrizoate Sod (Gastrografin 37%) 90 ml PO ONETIME ONE Stop: 05/30/17 18:24 Last Admin: 05/30/17 18:52 Dose: 90 ml Ephedrine Sulfate (Ephedrine In Ns) Confirm Administered Dose 25 mg .ROUTE .STK- MED ONE Stop: 05/30/17 22:45 Fentanyl (Sublimaze) Confirm Administered Dose 250 mcg .ROUTE .STK-MED ONE Stop: 05/30/17 22:01 Fentanyl (Sublimaze) 50 mcg IVPUSH Q5M PRN PRN Reason: Pain Fentanyl (Sublimaze) Confirm Administered Dose 250 mcg .ROUTE .STK-MED ONE Stop: 05/30/17 23:50 Furosemide (Lasix) 20 mg PO ONETIME ONE Stop: 06/02/17 08:29 Last Admin: 06/02/17 08:29 Dose: 20 mg Glycopyrrolate () Confirm Administered Dose 1 mg .ROUTE .STK-MED ONE Stop: 05/31/17 00:10 Hydromorphone HCl (Dilaudid) 0.5 mg IVPUSH Q15M PRN PRN Reason: severe pain Stop: 05/30/17 22:53 Hydromorphone HCl (Dilaudid) 0.25 mg IVPUSH Q15M PRN PRN Reason: severe pain Stop: 05/30/17 23:27 Hydromorphone HCl (Dilaudid) Confirm Administered Dose 1 mg .ROUTE .STK-MED ONE Stop: 05/30/17 23:35 Sodium Chloride (Normal Saline) 1,000 mls @ 999 mls/hr IV ONETIME ONE Stop: 05/30/17 18:04 Last Admin: 05/30/17 17:22 Dose: 999 mls/hr Cefoxitin Sodium 2 gm/ Sodium (Chloride) 100 mls @ 200 mls/hr IV ONETIME ONE Stop: 05/30/17 20:15 Last Admin: 05/30/17 20:22 Dose: Not Given Lactated Ringer's (Ringers, Lactated) 1,000 mls @ 100 mls/hr IV .BOLUS ONE Stop: 05/31/17 05:53 Last Admin: 05/30/17 20:15 Dose: 100 mls/hr Cefoxitin Sodium (Mefoxin In Dextrose,Iso-Osm 2 Gm/50 Ml) Confirm Administered Dose 50 mls @ as directed .ROUTE .STK-MED ONE Stop: 05/30/17 19:57 Last Admin: 05/30/17 20:22 Dose: Not Given Cefoxitin Sodium 2 gm/ Premix 50 mls @ 100 mls/hr IV ONETIME ONE Stop: 05/30/17 20:25 Last Admin: 05/30/17 20:16 Dose: 100 mls/hr Lidocaine HCl (Xylocaine-Mpf 1%) Confirm Administered Dose 4 mls @ as directed .ROUTE .STK-MED ONE Stop: 05/30/17 22:01 Lactated Ringer's (Ringers, Lactated) Confirm Administered Dose 1,000 mls @ as directed .ROUTE .STK-MED ONE Stop: 05/30/17 23:06 Lactated Ringer's (Ringers, Lactated) Confirm Administered Dose 1,000 mls @ as directed .ROUTE .STK-MED ONE Stop: 05/31/17 00:23 Sodium Chloride (Normal Saline) 1,000 mls @ 40 mls/hr IV ASDIRECTED [facility] Last Admin: 06/02/17 12:31 Dose: 40 mls/hr Piperacillin Sod/Tazobactam (Sod 4.5 gm/ Sodium Chloride) 100 mls @ 200 mls/hr IV ONETIME ONE Stop: 05/31/17 01:29 Last Admin: 05/31/17 02:40 Dose: 200 mls/hr Iopamidol (Isovue-300 (61%)) 125 ml IVPUSH ONETIME ONE Stop: 05/30/17 18:24 Last Admin: 05/30/17 18:51 Dose: 125 ml Lidocaine/Epinephrine (Xylocaine 1% With Epinephrine 1:100,000) Confirm Administered Dose 20 ml .ROUTE .STK-MED ONE Stop: 05/30/17 21:10 Last Admin: 05/30/17 22:36 Dose: 5.5 ml Metoclopramide HCl (Reglan) 5 mg IVPUSH ONETIME ONE Stop: 05/30/17 19:49 Last Admin: 05/30/17 20:13 Dose: 5 mg Midazolam HCl (Versed 1 Mg/Ml) Confirm Administered Dose 2 mg .ROUTE .STK-MED ONE Stop: 05/30/17 22:01 Neostigmine Methylsulfate (Neostigmine) Confirm Administered Dose 5 mg .ROUTE .STK-MED ONE Stop: 05/31/17 00:10 Ondansetron HCl (Zofran) Confirm Administered Dose 4 mg .ROUTE .STK-MED ONE Stop: 05/30/17 22:01 Ondansetron HCl (Zofran) 4 mg IVPUSH ONETIME PRN PRN Reason: Nausea/Vomiting Phenylephrine HCl (Phenylephrine In Ns 100 Mcg/Ml) Confirm Administered Dose 1 mg .ROUTE .STK-MED ONE Stop: 05/30/17 22:47 Pneumococcal Polyvalent Vaccine (Pneumovax 23) 0.5 ml IM .ONCE ONE Stop: 05/31/17 08:48 Propofol (Diprivan 20 Ml) Confirm Administered Dose 200 mg .ROUTE .STK-MED ONE Stop: 05/30/17 22:01 Rocuronium [place] (Zemuron) Confirm Administered Dose 50 mg .ROUTE .STK-MED ONE Stop: 05/30/17 22:01 Sodium Chloride (Saline Flush) 10 ml FLUSH ONETIME PRN PRN Reason: IV FLUSH Last Admin: 05/30/17 18:52 Dose: 10 ml Succinylcholine Chloride (Succinylcholine In Ns Pf) Confirm Administered Dose 100 mg .ROUTE .STK-MED ONE Stop: 05/30/17 22:36 - Exam GI/Abdominal Exam: Non-Tender, Distended - Problem List & Annotations (1) Appendicitis, acute SNOMED Code(s): 20170785 Code(s): K35.80 - UNSPECIFIED ACUTE APPENDICITIS Status: Acute Priority: High Current Visit: Yes Qualifiers: Acute appendicitis type: with localized peritonitis Qualified Code(s): K35.3 - Acute appendicitis with localized peritonitis - Problem List Review Problem List Initiated/Reviewed/Updated: Yes - My Orders Last 24 Hours: Active Orders 24 hr Category Date Time Status Nasogastric Tube Management [Gastrointestinal Tube Mgmt Care 06/02/17 14:02 Ordered ] [RC] ASDIRECTED Clear Liquid Diet [DIET] Diet 06/02/17 Dinner Ordered Dextrose 5%-Normal Saline with KCl 20 mEq @ 125 mL/Hr ( Med 06/02/17 14:00 Ordered 1000 mL) Dextrose 5%-0.9% NaCl with KCl [D5 NS with 20 mEq KCl] 1,000 ml IV ASDIRECTED Phenol [Chloraseptic] Med 06/02/17 14:03 Ordered See Dose Instructions MUCMEM Q2H PRN Remove Patch Med 06/05/17 12:00 Active 0 ea TRDERM Q72H Scopolamine [Transderm-Scop] Med 06/02/17 12:00 Active 1.5 mg TRDERM Q72H PRN Nasogastric Orogastric Tube Insertion [OM.PC] Routine Oth 06/02/17 12:05 Ordered Medication Orders Hydromorphone HCl (Dilaudid) 0.5 mg IVPUSH Q1H PRN PRN Reason: Pain (severe 7-10) Last Admin: 06/02/17 13:19 Dose: 0.5 mg Piperacillin Sod/Tazobactam (Sod 4.5 gm/ Sodium Chloride) 100 mls @ 25 mls/hr IV Q8H [facility] Last Admin: 06/02/17 08:29 Dose: 25 mls/hr Infusion: 06/02/17 04:36 Dose: 25 mls/hr Admin: 06/02/17 00:36 Dose: 25 mls/hr Infusion: 06/01/17 20:56 Dose: 25 mls/hr Admin: 06/01/17 16:56 Dose: 25 mls/hr Infusion: 06/01/17 12:00 Dose: 25 mls/hr Admin: 06/01/17 08:00 Dose: 25 mls/hr Infusion: 06/01/17 05:41 Dose: 25 mls/hr Admin: 06/01/17 01:41 Dose: 25 mls/hr Infusion: 05/31/17 20:56 Dose: 25 mls/hr Admin: 05/31/17 16:56 Dose: 25 mls/hr Infusion: 05/31/17 12:36 Dose: 25 mls/hr Admin: 05/31/17 08:36 Dose: 25 mls/hr Miscellaneous Information (Remove Patch) 0 ea TRDERM Q72H [facility] Ondansetron HCl (Zofran) 4 mg IVPUSH Q6H PRN PRN Reason: Nausea/Vomiting Last Admin: 06/02/17 08:32 Dose: 4 mg Admin: 06/01/17 20:16 Dose: 4 mg Admin: 06/01/17 10:29 Dose: 4 mg Admin: 05/31/17 10:33 Dose: 4 mg Oxycodone/Acetaminophen (Percocet 325-5 Mg) 2 tab PO Q4H PRN PRN Reason: Pain (moderate 4-6) Last Admin: 06/02/17 08:33 Dose: 2 tab Admin: 06/01/17 19:59 Dose: 2 tab Admin: 06/01/17 08:00 Dose: 2 tab Admin: 06/01/17 03:17 Dose: 2 tab Admin: 05/31/17 19:26 Dose: 2 tab Admin: 05/31/17 15:18 Dose: 2 tab Admin: 05/31/17 05:25 Dose: 2 tab Scopolamine (Transderm-Scop) 1.5 mg TRDERM Q72H PRN PRN Reason: Nausea/Vomiting Last Admin: 06/02/17 13:18 Dose: 1.5 mg Sodium Chloride (Saline Flush) 10 ml FLUSH ASDIRECTED PRN PRN Reason: Keep Vein Open Last Admin: 05/30/17 17:22 Dose: 10 ml - Assessment Assessment (Free Text/Narrative):: Symptomatic postop ileus with nausea and emesis. - Plan Plan (Free Text/Narrative):: NG tube intermittent suction.
[2017-06-02] MEDS: Phenol 1.4% Oral Spray 20 ML Bottle MUCMEM PRN ×2 (15:11→17:47)
[2017-06-02] MEDS: Dextrose 5%-0.9% NaCl with KCl 1,000 ML IV SCH ×2 (15:12→23:38)
[2017-06-03] MEDS: Piperacillin/Tazobactam 4.5 GM in Sodium Chloride 0.9% 100 ML IV SCH ×3 (00:53→16:25)
[2017-06-03] MEDS: Dextrose 5%-0.9% NaCl with KCl 1,000 ML IV SCH ×2 (08:43→17:47)
--- NOTE | 2017-06-03 09:05 | PCM.SURGPN ---
- General Info Functional Status: Reports: Pain Controlled, Ambulating, Urinating - Review of Systems Gastrointestinal: Reports: Diarrhea, Flatus - Patient Data Vitals - most recent: Last Vital Signs Temp 36.9 C 06/03/17 05:28 Pulse 86 06/03/17 05:28 Resp 16 06/03/17 05:28 BP 135/79 06/03/17 05:28 Pulse Ox 98 06/03/17 05:28 Weight - most recent: 75.614 kg I&O - last 24 hours: Intake & Output 06/02/17 06/03/17 06/03/17 22:59 06:59 14:59 Intake Total 747 1658 Output Total 100 615 Balance 647 1043 Lab Results last 24 hrs: Laboratory Results - last 24 hr 06/02/17 Range/Units 14:30 WBC 9.20 (3.98-10.04) K/mm3 RBC 3.10 L (3.98-5.22) M/mm3 Hgb 9.4 L (11.2-15.7) gm/L Hct 29.8 L (34.1-44.9) % MCV 96.1 H (79.4-94.8) fl MCH 30.3 (25.6-32.2) pg MCHC 31.5 L (32.2-35.5) g/dl RDW Std Deviation 46.1 (36.4-46.3) fL Plt Count 154 L (182-369) K/mm3 MPV 10.2 (9.4-12.3) fl Neut % (Auto) 78.9 H (34.0-71.1) % Lymph % (Auto) 16.5 L (19.3-51.7) % [place] % (Auto) 4.2 L (4.7-12.5) % Eos % (Auto) 0.2 L (0.7-5.8) Baso % (Auto) 0.1 (0.1-1.2) % Neut # (Auto) 7.25 H (1.56-6.13) K/mm3 Lymph # (Auto) 1.52 (1.18-3.74) K/mm3 [place] # (Auto) 0.39 H (0.24-0.36) K/mm3 Eos # (Auto) 0.02 L (0.04-0.36) K/mm3 Baso # (Auto) 0.01 (0.01-0.08) K/mm3 Manual Slide Review Normal smear Med Orders - Current: Current Medications Furosemide (Lasix) 20 mg IVPUSH DAILY [facility] Hydromorphone HCl (Dilaudid) 0.5 mg IVPUSH Q1H PRN PRN Reason: Pain (severe 7-10) Last Admin: 06/02/17 19:21 Dose: 0.5 mg Piperacillin Sod/Tazobactam (Sod 4.5 gm/ Sodium Chloride) 100 mls @ 25 mls/hr IV Q8H MELISSA Last Admin: 06/03/17 08:47 Dose: 25 mls/hr Potassium Chloride/Dextrose/Sod Cl (D5 Ns With 20 Meq Kcl) 1,000 mls @ 40 mls/ hr IV ASDIRECTED MELISSA Last Admin: 06/03/17 08:43 Dose: 125 mls/hr Miscellaneous Information (Remove Patch) 0 ea TRDERM Q72H MELISSA Ondansetron HCl (Zofran) 4 mg IVPUSH Q6H PRN PRN Reason: Nausea/Vomiting Last Admin: 06/02/17 08:32 Dose: 4 mg Oxycodone/Acetaminophen (Percocet 325-5 Mg) 2 tab PO Q4H PRN PRN Reason: Pain (moderate 4-6) Last Admin: 06/02/17 08:33 Dose: 2 tab Phenol/Menthol (Chloraseptic) 0 ml MUCMEM Q2H PRN PRN Reason: Sore Throat Last Admin: 06/02/17 17:47 Dose: 3 sprays Potassium Chloride (Klor-Con M20) 20 meq PO BID MELISSA Scopolamine (Transderm-Scop) 1.5 mg TRDERM Q72H PRN PRN Reason: Nausea/Vomiting Last Admin: 06/02/17 13:18 Dose: 1.5 mg Sodium Chloride (Saline Flush) 10 ml FLUSH ASDIRECTED PRN PRN Reason: Keep Vein Open Last Admin: 05/30/17 17:22 Dose: 10 ml Discontinued Medications Bupivacaine HCl/Epinephrine Bitart (Marcaine 0.5%/Epinephrine 1:200,000) Confirm Administered Dose 50 ml .ROUTE .STK-MED ONE Stop: 05/30/17 21:10 Last Admin: 05/30/17 22:36 Dose: 5.5 ml Diatrizoate Meglum/Diatrizoate Sod (Gastrografin 37%) 90 ml PO ONETIME ONE Stop: 05/30/17 18:24 Last Admin: 05/30/17 18:52 Dose: 90 ml Ephedrine Sulfate (Ephedrine In Ns) Confirm Administered Dose 25 mg .ROUTE .STK- MED ONE Stop: 05/30/17 22:45 Fentanyl (Sublimaze) Confirm Administered Dose 250 mcg .ROUTE .STK-MED ONE Stop: 05/30/17 22:01 Fentanyl (Sublimaze) 50 mcg IVPUSH Q5M PRN PRN Reason: Pain Fentanyl (Sublimaze) Confirm Administered Dose 250 mcg .ROUTE .STK-MED ONE Stop: 05/30/17 23:50 Furosemide (Lasix) 20 mg PO ONETIME ONE Stop: 06/02/17 08:29 Last Admin: 06/02/17 08:29 Dose: 20 mg Glycopyrrolate () Confirm Administered Dose 1 mg .ROUTE .STK-MED ONE Stop: 05/31/17 00:10 Hydromorphone HCl (Dilaudid) 0.5 mg IVPUSH Q15M PRN PRN Reason: severe pain Stop: 05/30/17 22:53 Hydromorphone HCl (Dilaudid) 0.25 mg IVPUSH Q15M PRN PRN Reason: severe pain Stop: 05/30/17 23:27 Hydromorphone HCl (Dilaudid) Confirm Administered Dose 1 mg .ROUTE .STK-MED ONE Stop: 05/30/17 23:35 Sodium Chloride (Normal Saline) 1,000 mls @ 999 mls/hr IV ONETIME ONE Stop: 05/30/17 18:04 Last Admin: 05/30/17 17:22 Dose: 999 mls/hr Cefoxitin Sodium 2 gm/ Sodium (Chloride) 100 mls @ 200 mls/hr IV ONETIME ONE Stop: 05/30/17 20:15 Last Admin: 05/30/17 20:22 Dose: Not Given Lactated Ringer's (Ringers, Lactated) 1,000 mls @ 100 mls/hr IV .BOLUS ONE Stop: 05/31/17 05:53 Last Admin: 05/30/17 20:15 Dose: 100 mls/hr Cefoxitin Sodium (Mefoxin In Dextrose,Iso-Osm 2 Gm/50 Ml) Confirm Administered Dose 50 mls @ as directed .ROUTE .STK-MED ONE Stop: 05/30/17 19:57 Last Admin: 05/30/17 20:22 Dose: Not Given Cefoxitin Sodium 2 gm/ Premix 50 mls @ 100 mls/hr IV ONETIME ONE Stop: 05/30/17 20:25 Last Admin: 05/30/17 20:16 Dose: 100 mls/hr Lidocaine HCl (Xylocaine-Mpf 1%) Confirm Administered Dose 4 mls @ as directed .ROUTE .STK-MED ONE Stop: 05/30/17 22:01 Lactated Ringer's (Ringers, Lactated) Confirm Administered Dose 1,000 mls @ as directed .ROUTE .STK-MED ONE Stop: 05/30/17 23:06 Lactated Ringer's (Ringers, Lactated) Confirm Administered Dose 1,000 mls @ as directed .ROUTE .STK-MED ONE Stop: 05/31/17 00:23 Sodium Chloride (Normal Saline) 1,000 mls @ 40 mls/hr IV ASDIRECTED MELISSA Last Admin: 06/02/17 12:31 Dose: 40 mls/hr Piperacillin Sod/Tazobactam (Sod 4.5 gm/ Sodium Chloride) 100 mls @ 200 mls/hr IV ONETIME ONE Stop: 05/31/17 01:29 Last Admin: 05/31/17 02:40 Dose: 200 mls/hr Iopamidol (Isovue-300 (61%)) 125 ml IVPUSH ONETIME ONE Stop: 05/30/17 18:24 Last Admin: 05/30/17 18:51 Dose: 125 ml Lidocaine/Epinephrine (Xylocaine 1% With Epinephrine 1:100,000) Confirm Administered Dose 20 ml .ROUTE .STK-MED ONE Stop: 05/30/17 21:10 Last Admin: 05/30/17 22:36 Dose: 5.5 ml Metoclopramide HCl (Reglan) 5 mg IVPUSH ONETIME ONE Stop: 05/30/17 19:49 Last Admin: 05/30/17 20:13 Dose: 5 mg Midazolam HCl (Versed 1 Mg/Ml) Confirm Administered Dose 2 mg .ROUTE .STK-MED ONE Stop: 05/30/17 22:01 Neostigmine Methylsulfate (Neostigmine) Confirm Administered Dose 5 mg .ROUTE .STK-MED ONE Stop: 05/31/17 00:10 Ondansetron HCl (Zofran) Confirm Administered Dose 4 mg .ROUTE .STK-MED ONE Stop: 05/30/17 22:01 Ondansetron HCl (Zofran) 4 mg IVPUSH ONETIME PRN PRN Reason: Nausea/Vomiting Phenylephrine HCl (Phenylephrine In Ns 100 Mcg/Ml) Confirm Administered Dose 1 mg .ROUTE .STK-MED ONE Stop: 05/30/17 22:47 Pneumococcal Polyvalent Vaccine (Pneumovax 23) 0.5 ml IM .ONCE ONE Stop: 05/31/17 08:48 Propofol (Diprivan 20 Ml) Confirm Administered Dose 200 mg .ROUTE .STK-MED ONE Stop: 05/30/17 22:01 Rocuronium [place] (Zemuron) Confirm Administered Dose 50 mg .ROUTE .STK-MED ONE Stop: 05/30/17 22:01 Sodium Chloride (Saline Flush) 10 ml FLUSH ONETIME PRN PRN Reason: IV FLUSH Last Admin: 05/30/17 18:52 Dose: 10 ml Succinylcholine Chloride (Succinylcholine In Ns Pf) Confirm Administered Dose 100 mg .ROUTE .STK-MED ONE Stop: 05/30/17 22:36 - Exam GI/Abdominal Exam: Soft, Non-Tender - Problem List & Annotations (1) Appendicitis, acute SNOMED Code(s): 60304197 Code(s): K35.80 - UNSPECIFIED ACUTE APPENDICITIS Status: Acute Priority: High Current Visit: Yes Qualifiers: Acute appendicitis type: with localized peritonitis Qualified Code(s): K35.3 - Acute appendicitis with localized peritonitis - Problem List Review Problem List Initiated/Reviewed/Updated: Yes - My Orders Last 24 Hours: Active Orders 24 hr Category Date Time Status Clear Liquid Diet [DIET] Diet 06/03/17 Lunch Ordered Dextrose 5%-0.9% NaCl with KCl [D5 NS with 20 mEq KCl] Med 06/02/17 14:00 Active 1,000 ml IV ASDIRECTED Furosemide [Lasix] Med 06/03/17 09:15 Ordered 20 mg IVPUSH DAILY Phenol [Chloraseptic] Med 06/02/17 14:03 Active See Dose Instructions MUCMEM Q2H PRN Potassium Chloride [Klor-Con M20] Med 06/03/17 09:15 Ordered 20 meq PO BID Remove Patch Med 06/05/17 12:00 Active 0 ea TRDERM Q72H Scopolamine [Transderm-Scop] Med 06/02/17 12:00 Active 1.5 mg TRDERM Q72H PRN Nasogastric Orogastric Tube Insertion [OM.PC] Routine Oth 06/02/17 12:05 Ordered Medication Orders Furosemide (Lasix) 20 mg IVPUSH DAILY [facility] Hydromorphone HCl (Dilaudid) 0.5 mg IVPUSH Q1H PRN PRN Reason: Pain (severe 7-10) Last Admin: 06/02/17 19:21 Dose: 0.5 mg Admin: 06/02/17 13:19 Dose: 0.5 mg Piperacillin Sod/Tazobactam (Sod 4.5 gm/ Sodium Chloride) 100 mls @ 25 mls/hr IV Q8H MELISSA Last Admin: 06/03/17 08:47 Dose: 25 mls/hr Infusion: 06/03/17 04:53 Dose: 25 mls/hr Admin: 06/03/17 00:53 Dose: 25 mls/hr Infusion: 06/02/17 20:50 Dose: 25 mls/hr Admin: 06/02/17 16:50 Dose: 25 mls/hr Infusion: 06/02/17 12:29 Dose: 25 mls/hr Admin: 06/02/17 08:29 Dose: 25 mls/hr Infusion: 06/02/17 04:36 Dose: 25 mls/hr Admin: 06/02/17 00:36 Dose: 25 mls/hr Infusion: 06/01/17 20:56 Dose: 25 mls/hr Admin: 06/01/17 16:56 Dose: 25 mls/hr Infusion: 06/01/17 12:00 Dose: 25 mls/hr Admin: 06/01/17 08:00 Dose: 25 mls/hr Infusion: 06/01/17 05:41 Dose: 25 mls/hr Admin: 06/01/17 01:41 Dose: 25 mls/hr Infusion: 05/31/17 20:56 Dose: 25 mls/hr Admin: 05/31/17 16:56 Dose: 25 mls/hr Infusion: 05/31/17 12:36 Dose: 25 mls/hr Admin: 05/31/17 08:36 Dose: 25 mls/hr Potassium Chloride/Dextrose/Sod Cl (D5 Ns With 20 Meq Kcl) 1,000 mls @ 40 mls/ hr IV ASDIRECTED MELISSA Last Admin: 06/03/17 08:43 Dose: 125 mls/hr Infusion: 06/03/17 07:38 Dose: 125 mls/hr Admin: 06/02/17 23:38 Dose: 125 mls/hr Infusion: 06/02/17 23:12 Dose: 125 mls/hr Admin: 06/02/17 15:12 Dose: 125 mls/hr Miscellaneous Information (Remove Patch) 0 ea TRDERM Q72H MELISSA Ondansetron HCl (Zofran) 4 mg IVPUSH Q6H PRN PRN Reason: Nausea/Vomiting Last Admin: 06/02/17 08:32 Dose: 4 mg Admin: 06/01/17 20:16 Dose: 4 mg Admin: 06/01/17 10:29 Dose: 4 mg Admin: 05/31/17 10:33 Dose: 4 mg Oxycodone/Acetaminophen (Percocet 325-5 Mg) 2 tab PO Q4H PRN PRN Reason: Pain (moderate 4-6) Last Admin: 06/02/17 08:33 Dose: 2 tab Admin: 06/01/17 19:59 Dose: 2 tab Admin: 06/01/17 08:00 Dose: 2 tab Admin: 06/01/17 03:17 Dose: 2 tab Admin: 05/31/17 19:26 Dose: 2 tab Admin: 05/31/17 15:18 Dose: 2 tab Admin: 05/31/17 05:25 Dose: 2 tab Phenol/Menthol (Chloraseptic) 0 ml MUCMEM Q2H PRN PRN Reason: Sore Throat Last Admin: 06/02/17 17:47 Dose: 3 sprays Admin: 06/02/17 15:11 Dose: 4 sprays Potassium Chloride (Klor-Con M20) 20 meq PO BID MELISSA Scopolamine (Transderm-Scop) 1.5 mg TRDERM Q72H PRN PRN Reason: Nausea/Vomiting Last Admin: 06/02/17 13:18 Dose: 1.5 mg Sodium Chloride (Saline Flush) 10 ml FLUSH ASDIRECTED PRN PRN Reason: Keep Vein Open Last Admin: 05/30/17 17:22 Dose: 10 ml - Assessment Assessment (Free Text/Narrative):: Patient stated she passed a lot of gas and had dark stools morning. Her nasogastric tube output for 24 hours was 400 mL and mostly clear. The nasogastric tube filled with nausea and eructation. Her temperature and white blood cell count are normal. I pulled the nasogastric tube as well as the RENNY drain. I will restart her on a clear liquid diet. Gentle Lasix diuresis with potassium supplementation to begin today.
[2017-06-03] MEDS: Furosemide 20 MG/2 ML VIAL IVPUSH SCH (09:16)
[2017-06-03] MEDS: Potassium Chloride 20 MEQ Tab.ER PO SCH ×2 (09:16→20:43)
[2017-06-04] MEDS: Piperacillin/Tazobactam 4.5 GM in Sodium Chloride 0.9% 100 ML IV SCH ×3 (01:48→16:05)
[2017-06-04] MEDS: Dextrose 5%-0.9% NaCl with KCl 1,000 ML IV SCH (01:50)
[2017-06-04] MEDS: Potassium Chloride 20 MEQ Tab.ER PO SCH ×2 (08:02→20:47)
[2017-06-04] MEDS: Furosemide 20 MG/2 ML VIAL IVPUSH SCH (08:02)
[2017-06-04] MEDS ORDERED: Sodium Chloride 0.9% 10 ML Syringe FLUSH PRN (09:44)
--- NOTE | 2017-06-04 09:47 | PCM.SURGPN ---
- General Info Date of Service: 06/04/17 Functional Status: Reports: Pain Controlled, Tolerating Diet, Other (Passing large amounts of gas and stools are firming up) - Review of Systems Gastrointestinal: Reports: Diarrhea, Flatus - Patient Data Vitals - most recent: Last Vital Signs Temp 37.2 C 06/04/17 08:03 Pulse 58 L 06/04/17 08:03 Resp 14 06/04/17 08:03 BP 145/59 H 06/04/17 08:03 Pulse Ox 95 06/04/17 08:03 Weight - most recent: 72.756 kg I&O - last 24 hours: Intake & Output 06/03/17 06/04/17 06/04/17 22:59 06:59 14:59 Intake Total 2567 Output Total 1999 Balance 567 Med Orders - Current: Current Medications Furosemide (Lasix) 20 mg IVPUSH DAILY [facility] Last Admin: 06/04/17 08:02 Dose: 20 mg Hydromorphone HCl (Dilaudid) 0.5 mg IVPUSH Q1H PRN PRN Reason: Pain (severe 7-10) Last Admin: 06/02/17 19:21 Dose: 0.5 mg Piperacillin Sod/Tazobactam (Sod 4.5 gm/ Sodium Chloride) 100 mls @ 25 mls/hr IV Q8H [facility] Last Admin: 06/04/17 08:03 Dose: 25 mls/hr Miscellaneous Information (Remove Patch) 0 ea TRDERM Q72H [facility] Ondansetron HCl (Zofran) 4 mg IVPUSH Q6H PRN PRN Reason: Nausea/Vomiting Last Admin: 06/02/17 08:32 Dose: 4 mg Oxycodone/Acetaminophen (Percocet 325-5 Mg) 2 tab PO Q4H PRN PRN Reason: Pain (moderate 4-6) Last Admin: 06/02/17 08:33 Dose: 2 tab Phenol/Menthol (Chloraseptic) 0 ml MUCMEM Q2H PRN PRN Reason: Sore Throat Last Admin: 06/02/17 17:47 Dose: 3 sprays Potassium Chloride (Klor-Con M20) 20 meq PO BID [facility] Last Admin: 06/04/17 08:02 Dose: 20 meq Scopolamine (Transderm-Scop) 1.5 mg TRDERM Q72H PRN PRN Reason: Nausea/Vomiting Last Admin: 06/02/17 13:18 Dose: 1.5 mg Sodium Chloride (Saline Flush) 10 ml FLUSH ASDIRECTED PRN PRN Reason: Keep Vein Open Last Admin: 05/30/17 17:22 Dose: 10 ml Discontinued Medications Bupivacaine HCl/Epinephrine Bitart (Marcaine 0.5%/Epinephrine 1:200,000) Confirm Administered Dose 50 ml .ROUTE .STK-MED ONE Stop: 05/30/17 21:10 Last Admin: 05/30/17 22:36 Dose: 5.5 ml Diatrizoate Meglum/Diatrizoate Sod (Gastrografin 37%) 90 ml PO ONETIME ONE Stop: 05/30/17 18:24 Last Admin: 05/30/17 18:52 Dose: 90 ml Ephedrine Sulfate (Ephedrine In Ns) Confirm Administered Dose 25 mg .ROUTE .STK- MED ONE Stop: 05/30/17 22:45 Fentanyl (Sublimaze) Confirm Administered Dose 250 mcg .ROUTE .STK-MED ONE Stop: 05/30/17 22:01 Fentanyl (Sublimaze) 50 mcg IVPUSH Q5M PRN PRN Reason: Pain Fentanyl (Sublimaze) Confirm Administered Dose 250 mcg .ROUTE .STK-MED ONE Stop: 05/30/17 23:50 Furosemide (Lasix) 20 mg PO ONETIME ONE Stop: 06/02/17 08:29 Last Admin: 06/02/17 08:29 Dose: 20 mg Glycopyrrolate () Confirm Administered Dose 1 mg .ROUTE .STK-MED ONE Stop: 05/31/17 00:10 Hydromorphone HCl (Dilaudid) 0.5 mg IVPUSH Q15M PRN PRN Reason: severe pain Stop: 05/30/17 22:53 Hydromorphone HCl (Dilaudid) 0.25 mg IVPUSH Q15M PRN PRN Reason: severe pain Stop: 05/30/17 23:27 Hydromorphone HCl (Dilaudid) Confirm Administered Dose 1 mg .ROUTE .STK-MED ONE Stop: 05/30/17 23:35 Sodium Chloride (Normal Saline) 1,000 mls @ 999 mls/hr IV ONETIME ONE Stop: 05/30/17 18:04 Last Admin: 05/30/17 17:22 Dose: 999 mls/hr Cefoxitin Sodium 2 gm/ Sodium (Chloride) 100 mls @ 200 mls/hr IV ONETIME ONE Stop: 05/30/17 20:15 Last Admin: 05/30/17 20:22 Dose: Not Given Lactated Ringer's (Ringers, Lactated) 1,000 mls @ 100 mls/hr IV .BOLUS ONE Stop: 05/31/17 05:53 Last Admin: 05/30/17 20:15 Dose: 100 mls/hr Cefoxitin Sodium (Mefoxin In Dextrose,Iso-Osm 2 Gm/50 Ml) Confirm Administered Dose 50 mls @ as directed .ROUTE .STK-MED ONE Stop: 05/30/17 19:57 Last Admin: 05/30/17 20:22 Dose: Not Given Cefoxitin Sodium 2 gm/ Premix 50 mls @ 100 mls/hr IV ONETIME ONE Stop: 05/30/17 20:25 Last Admin: 05/30/17 20:16 Dose: 100 mls/hr Lidocaine HCl (Xylocaine-Mpf 1%) Confirm Administered Dose 4 mls @ as directed .ROUTE .STK-MED ONE Stop: 05/30/17 22:01 Lactated Ringer's (Ringers, Lactated) Confirm Administered Dose 1,000 mls @ as directed .ROUTE .STK-MED ONE Stop: 05/30/17 23:06 Lactated Ringer's (Ringers, Lactated) Confirm Administered Dose 1,000 mls @ as directed .ROUTE .[facility]-MED ONE Stop: 05/31/17 00:23 Sodium Chloride (Normal Saline) 1,000 mls @ 40 [facility]ls[facility]hr [facility] Last Admin: 06/02/17 12:31 Dose: 40 mls/hr Piperacillin Sod/Tazobactam (Sod 4.5 gm/ Sodium Chloride) 100 mls @ 200 mls/hr IV ONETIME ONE Stop: 05/31/17 01:29 Last Admin: 05/31/17 02:40 Dose: 200 mls/hr Potassium Chloride/Dextrose/Sod Cl (D5 Ns With 20 Meq Kcl) 1,000 mls @ 40 mls/ hr [facility] Last Admin: 06/04/17 01:50 Dose: 40 mls/hr Iopamidol (Isovue-300 (61%)) 125 ml IVPUSH ONETIME ONE Stop: 05/30/17 18:24 Last Admin: 05/30/17 18:51 Dose: 125 ml Lidocaine/Epinephrine (Xylocaine 1% With Epinephrine 1:100,000) Confirm Administered Dose 20 ml .ROUTE .STK-MED ONE Stop: 05/30/17 21:10 Last Admin: 05/30/17 22:36 Dose: 5.5 ml Metoclopramide HCl (Reglan) 5 mg IVPUSH ONETIME ONE Stop: 05/30/17 19:49 Last Admin: 05/30/17 20:13 Dose: 5 mg Midazolam HCl (Versed 1 Mg/Ml) Confirm Administered Dose 2 mg .ROUTE .STK-MED ONE Stop: 05/30/17 22:01 Neostigmine Methylsulfate (Neostigmine) Confirm Administered Dose 5 mg .ROUTE .STK-MED ONE Stop: 05/31/17 00:10 Ondansetron HCl (Zofran) Confirm Administered Dose 4 mg .ROUTE .STK-MED ONE Stop: 05/30/17 22:01 Ondansetron HCl (Zofran) 4 mg IVPUSH ONETIME PRN PRN Reason: Nausea/Vomiting Phenylephrine HCl (Phenylephrine In Ns 100 Mcg/Ml) Confirm Administered Dose 1 mg .ROUTE .STK-MED ONE Stop: 05/30/17 22:47 Pneumococcal Polyvalent Vaccine (Pneumovax 23) 0.5 ml IM .ONCE ONE Stop: 05/31/17 08:48 Propofol (Diprivan 20 Ml) Confirm Administered Dose 200 mg .ROUTE .STK-MED ONE Stop: 05/30/17 22:01 Rocuronium [place] (Zemuron) Confirm Administered Dose 50 mg .ROUTE .STK-MED ONE Stop: 05/30/17 22:01 Sodium Chloride (Saline Flush) 10 ml FLUSH ONETIME PRN PRN Reason: IV FLUSH Last Admin: 05/30/17 18:52 Dose: 10 ml Succinylcholine Chloride (Succinylcholine In Ns Pf) Confirm Administered Dose 100 mg .ROUTE .STK-MED ONE Stop: 05/30/17 22:36 - Exam Wound/Incisions: healing well GI/Abdominal Exam: Soft, Non-Tender, Distended - Problem List & Annotations (1) Appendicitis, acute SNOMED Code(s): 54611920 Code(s): K35.80 - UNSPECIFIED ACUTE APPENDICITIS Status: Acute Priority: High Current Visit: Yes Qualifiers: Acute appendicitis type: with localized peritonitis Qualified Code(s): K35.3 - Acute appendicitis with localized peritonitis - Problem List Review Problem List Initiated/Reviewed/Updated: Yes - My Orders Last 24 Hours: Active Orders 24 hr Category Date Time Status Chest Physiotherapy [RT Chest Physiotherapy] [RC] Care 06/03/17 12:29 Active ASDIRECTED Communication Order [RC] ROUTINE Care 06/03/17 09:05 Active May Shower [RC] ASDIRECTED Care 06/03/17 09:06 Active Regular Diet [DIET] Diet 06/04/17 Lunch Active BMP [BASIC METABOLIC PANEL,BMP] [CHEM] Routine Lab 06/05/17 07:00 Ordered CBC WITH AUTO DIFF [HEME] Routine Lab 06/05/17 07:00 Ordered Furosemide [Lasix] Med 06/03/17 09:15 Active 20 mg IVPUSH DAILY Potassium Chloride [Klor-Con M20] Med 06/03/17 09:15 Active 20 meq PO BID Remove Patch Med 06/05/17 12:00 Active 0 ea TRDERM Q72H Sodium Chloride 0.9% [Saline Flush] Med 06/04/17 09:44 Ordered 10 ml FLUSH ASDIRECTED PRN Convert IV to Saline Lock [OM.PC] Routine Oth 06/04/17 09:44 Ordered RT Acapella [RESPCARE] Routine Oth 06/03/17 11:09 Active Medication Orders Furosemide (Lasix) 20 mg IVPUSH DAILY [facility] Last Admin: 06/04/17 08:02 Dose: 20 mg Admin: 06/03/17 09:16 Dose: 20 mg Hydromorphone HCl (Dilaudid) 0.5 mg IVPUSH Q1H PRN PRN Reason: Pain (severe 7-10) Last Admin: 06/02/17 19:21 Dose: 0.5 mg Admin: 06/02/17 13:19 Dose: 0.5 mg Piperacillin Sod/Tazobactam (Sod 4.5 gm/ Sodium Chloride) 100 mls @ 25 mls/hr IV Q8H [facility] Last Admin: 06/04/17 08:03 Dose: 25 mls/hr Infusion: 06/04/17 05:48 Dose: 25 mls/hr Admin: 06/04/17 01:48 Dose: 25 mls/hr Infusion: 06/03/17 20:25 Dose: 25 mls/hr Admin: 06/03/17 16:25 Dose: 25 mls/hr Infusion: 06/03/17 12:47 Dose: 25 mls/hr Admin: 06/03/17 08:47 Dose: 25 mls/hr Infusion: 06/03/17 04:53 Dose: 25 mls/hr Admin: 06/03/17 00:53 Dose: 25 mls/hr Infusion: 06/02/17 20:50 Dose: 25 mls/hr Admin: 06/02/17 16:50 Dose: 25 mls/hr Infusion: 06/02/17 12:29 Dose: 25 mls/hr Admin: 06/02/17 08:29 Dose: 25 mls/hr Infusion: 06/02/17 04:36 Dose: 25 mls/hr Admin: 06/02/17 00:36 Dose: 25 mls/hr Infusion: 06/01/17 20:56 Dose: 25 mls/hr Admin: 06/01/17 16:56 Dose: 25 mls/hr Infusion: 06/01/17 12:00 Dose: 25 mls/hr Admin: 06/01/17 08:00 Dose: 25 mls/hr Infusion: 06/01/17 05:41 Dose: 25 mls/hr Admin: 06/01/17 01:41 Dose: 25 mls/hr Infusion: 05/31/17 20:56 Dose: 25 mls/hr Admin: 05/31/17 16:56 Dose: 25 mls/hr Infusion: 05/31/17 12:36 Dose: 25 mls/hr Admin: 05/31/17 08:36 Dose: 25 mls/hr Miscellaneous Information (Remove Patch) 0 ea TRDERM Q72H [facility] Ondansetron HCl (Zofran) 4 mg IVPUSH Q6H PRN PRN Reason: Nausea/Vomiting Last Admin: 06/02/17 08:32 Dose: 4 mg Admin: 06/01/17 20:16 Dose: 4 mg Admin: 06/01/17 10:29 Dose: 4 mg Admin: 05/31/17 10:33 Dose: 4 mg Oxycodone/Acetaminophen (Percocet 325-5 Mg) 2 tab PO Q4H PRN PRN Reason: Pain (moderate 4-6) Last Admin: 06/02/17 08:33 Dose: 2 tab Admin: 06/01/17 19:59 Dose: 2 tab Admin: 06/01/17 08:00 Dose: 2 tab Admin: 06/01/17 03:17 Dose: 2 tab Admin: 05/31/17 19:26 Dose: 2 tab Admin: 05/31/17 15:18 Dose: 2 tab Admin: 05/31/17 05:25 Dose: 2 tab Phenol/Menthol (Chloraseptic) 0 ml MUCMEM Q2H PRN PRN Reason: Sore Throat Last Admin: 06/02/17 17:47 Dose: 3 sprays Admin: 06/02/17 15:11 Dose: 4 sprays Potassium Chloride (Klor-Con M20) 20 meq PO BID MELISSA Last Admin: 06/04/17 08:02 Dose: 20 meq Admin: 06/03/17 20:43 Dose: 20 meq Admin: 06/03/17 09:16 Dose: 20 meq Scopolamine (Transderm-Scop) 1.5 mg TRDERM Q72H PRN PRN Reason: Nausea/Vomiting Last Admin: 06/02/17 13:18 Dose: 1.5 mg Sodium Chloride (Saline Flush) 10 ml FLUSH ASDIRECTED PRN PRN Reason: Keep Vein Open Last Admin: 05/30/17 17:22 Dose: 10 ml - Assessment Assessment (Free Text/Narrative):: Doing well and can advance diet. - Plan Plan (Free Text/Narrative):: Regular diet. Lasix diuresis. Check labs in a.m. and if okay will discharge tomorrow.
[2017-06-05] MEDS: Piperacillin/Tazobactam 4.5 GM in Sodium Chloride 0.9% 100 ML IV SCH ×2 (00:43→08:06)
--- NOTE | 2017-06-05 08:05 | PCM.SURGPN ---
- General Info Date of Service: 06/05/17 Functional Status: Reports: Pain Controlled, Tolerating Diet, Ambulating, Urinating - Review of Systems Gastrointestinal: Reports: Other (Noted some staple discomfort) - Patient Data Vitals - most recent: Last Vital Signs Temp 37.3 C 06/05/17 02:33 Pulse 62 06/05/17 02:33 Resp 17 06/05/17 02:33 BP 121/58 L 06/05/17 02:33 Pulse Ox 96 06/05/17 02:33 Weight - most recent: 68.084 kg I&O - last 24 hours: Intake & Output 06/04/17 06/05/17 06/05/17 22:59 06:59 14:59 Intake Total 900 1000 Output Total 2700 2400 Balance -1800 -1400 Lab Results last 24 hrs: Laboratory Results - last 24 hr 06/05/17 06/05/17 Range/Units 06:10 06:10 WBC 8.01 (3.98-10.04) K/mm3 RBC 4.08 (3.98-5.22) M/mm3 Hgb 12.5 (11.2-15.7) gm/L Hct 37.5 (34.1-44.9) % MCV 91.9 (79.4-94.8) fl MCH 30.6 (25.6-32.2) pg MCHC 33.3 (32.2-35.5) g/dl RDW Std Deviation 45.8 (36.4-46.3) fL Plt Count 220 (182-369) K/mm3 MPV 10.5 (9.4-12.3) fl Neut % (Auto) 64.3 (34.0-71.1) % Lymph % (Auto) 25.3 (19.3-51.7) % [place] % (Auto) 8.1 (4.7-12.5) % Eos % (Auto) 1.5 (0.7-5.8) Baso % (Auto) 0.6 (0.1-1.2) % Neut # (Auto) 5.14 (1.56-6.13) K/mm3 Lymph # (Auto) 2.03 (1.18-3.74) K/mm3 [place] # (Auto) 0.65 H (0.24-0.36) K/mm3 Eos # (Auto) 0.12 (0.04-0.36) K/mm3 Baso # (Auto) 0.05 (0.01-0.08) K/mm3 Manual Slide Review Normal smear Sodium 141 (136-145) mEq/L Potassium 3.0 L (3.5-5.1) mEq/L Chloride 102 (98-107) mEq/L Carbon Dioxide 28 (21-32) mEq/L Anion Gap 14.0 (5-15) BUN 7 (7-18) mg/dL Creatinine 0.7 (0.55-1.02) mg/dL Est Cr Clr Drug Dosing 61.68 mL/min Estimated GFR (MDRD) > 60 (>60) mL/min BUN/Creatinine Ratio 10.0 L (14-18) Glucose 98 (80-115) mg/dL Calcium 9.1 (8.5-10.1) mg/dL Med Orders - Current: Current Medications Furosemide (Lasix) 20 mg IVPUSH DAILY [facility] Last Admin: 06/04/17 08:02 Dose: 20 mg Hydromorphone HCl (Dilaudid) 0.5 mg IVPUSH Q1H PRN PRN Reason: Pain (severe 7-10) Last Admin: 06/02/17 19:21 Dose: 0.5 mg Piperacillin Sod/Tazobactam (Sod 4.5 gm/ Sodium Chloride) 100 mls @ 25 mls/hr IV Q8H [facility] Last Admin: 06/05/17 00:43 Dose: 25 mls/hr Miscellaneous Information (Remove Patch) 0 ea TRDERM Q72H [facility] Ondansetron HCl (Zofran) 4 mg IVPUSH Q6H PRN PRN Reason: Nausea/Vomiting Last Admin: 06/02/17 08:32 Dose: 4 mg Oxycodone/Acetaminophen (Percocet 325-5 Mg) 2 tab PO Q4H PRN PRN Reason: Pain (moderate 4-6) Last Admin: 06/02/17 08:33 Dose: 2 tab Phenol/Menthol (Chloraseptic) 0 ml MUCMEM Q2H PRN PRN Reason: Sore Throat Last Admin: 06/02/17 17:47 Dose: 3 sprays Potassium Chloride (Klor-Con M20) 20 meq PO BID [facility] Last Admin: 06/04/17 20:47 Dose: 20 meq Scopolamine (Transderm-Scop) 1.5 mg TRDERM Q72H PRN PRN Reason: Nausea/Vomiting Last Admin: 06/02/17 13:18 Dose: 1.5 mg Sodium Chloride (Saline Flush) 10 ml FLUSH ASDIRECTED PRN PRN Reason: Keep Vein Open Last Admin: 05/30/17 17:22 Dose: 10 ml Sodium Chloride (Saline Flush) 10 ml FLUSH ASDIRECTED PRN PRN Reason: Keep Vein Open Discontinued Medications Bupivacaine HCl/Epinephrine Bitart (Marcaine 0.5%/Epinephrine 1:200,000) Confirm Administered Dose 50 ml .ROUTE .STK-MED ONE Stop: 05/30/17 21:10 Last Admin: 05/30/17 22:36 Dose: 5.5 ml Diatrizoate Meglum/Diatrizoate Sod (Gastrografin 37%) 90 ml PO ONETIME ONE Stop: 05/30/17 18:24 Last Admin: 05/30/17 18:52 Dose: 90 ml Ephedrine Sulfate (Ephedrine In Ns) Confirm Administered Dose 25 mg .ROUTE .STK- MED ONE Stop: 05/30/17 22:45 Fentanyl (Sublimaze) Confirm Administered Dose 250 mcg .ROUTE .STK-MED ONE Stop: 05/30/17 22:01 Fentanyl (Sublimaze) 50 mcg IVPUSH Q5M PRN PRN Reason: Pain Fentanyl (Sublimaze) Confirm Administered Dose 250 mcg .ROUTE .STK-MED ONE Stop: 05/30/17 23:50 Furosemide (Lasix) 20 mg PO ONETIME ONE Stop: 06/02/17 08:29 Last Admin: 06/02/17 08:29 Dose: 20 mg Glycopyrrolate () Confirm Administered Dose 1 mg .ROUTE .STK-MED ONE Stop: 05/31/17 00:10 Hydromorphone HCl (Dilaudid) 0.5 mg IVPUSH Q15M PRN PRN Reason: severe pain Stop: 05/30/17 22:53 Hydromorphone HCl (Dilaudid) 0.25 mg IVPUSH Q15M PRN PRN Reason: severe pain Stop: 05/30/17 23:27 Hydromorphone HCl (Dilaudid) Confirm Administered Dose 1 mg .ROUTE .STK-MED ONE Stop: 05/30/17 23:35 Sodium Chloride (Normal Saline) 1,000 mls @ 999 mls/hr IV ONETIME ONE Stop: 05/30/17 18:04 Last Admin: 05/30/17 17:22 Dose: 999 mls/hr Cefoxitin Sodium 2 gm/ Sodium (Chloride) 100 mls @ 200 mls/hr IV ONETIME ONE Stop: 05/30/17 20:15 Last Admin: 05/30/17 20:22 Dose: Not Given Lactated Ringer's (Ringers, Lactated) 1,000 mls @ 100 mls/hr IV .BOLUS ONE Stop: 05/31/17 05:53 Last Admin: 05/30/17 20:15 Dose: 100 mls/hr Cefoxitin Sodium (Mefoxin In Dextrose,Iso-Osm 2 Gm/50 Ml) Confirm Administered Dose 50 mls @ as directed .ROUTE .STK-MED ONE Stop: 05/30/17 19:57 Last Admin: 05/30/17 20:22 Dose: Not Given Cefoxitin Sodium 2 gm/ Premix 50 mls @ 100 mls/hr IV ONETIME ONE Stop: 05/30/17 20:25 Last Admin: 05/30/17 20:16 Dose: 100 mls/hr Lidocaine HCl (Xylocaine-Mpf 1%) Confirm Administered Dose 4 mls @ as directed .ROUTE .STK-MED ONE Stop: 05/30/17 22:01 Lactated Ringer's (Ringers, Lactated) Confirm Administered Dose 1,000 mls @ as directed .ROUTE .STK-MED ONE Stop: 05/30/17 23:06 Lactated Ringer's (Ringers, Lactated) Confirm Administered Dose 1,000 mls @ as directed .ROUTE .STK-MED ONE Stop: 05/31/17 00:23 Sodium Chloride (Normal Saline) 1,000 mls @ 40 mls/hr IV ASDIRECTED [facility] Last Admin: 06/02/17 12:31 Dose: 40 mls/hr Piperacillin Sod/Tazobactam (Sod 4.5 gm/ Sodium Chloride) 100 mls @ 200 mls/hr IV ONETIME ONE Stop: 05/31/17 01:29 Last Admin: 05/31/17 02:40 Dose: 200 mls/hr Potassium Chloride/Dextrose/Sod Cl (D5 Ns With 20 Meq Kcl) 1,000 mls @ 40 mls/ hr IV ASDIRECTED [facility] Last Admin: 06/04/17 01:50 Dose: 40 mls/hr Iopamidol (Isovue-300 (61%)) 125 ml IVPUSH ONETIME ONE Stop: 05/30/17 18:24 Last Admin: 05/30/17 18:51 Dose: 125 ml Lidocaine/Epinephrine (Xylocaine 1% With Epinephrine 1:100,000) Confirm Administered Dose 20 ml .ROUTE .STK-MED ONE Stop: 05/30/17 21:10 Last Admin: 05/30/17 22:36 Dose: 5.5 ml Metoclopramide HCl (Reglan) 5 mg IVPUSH ONETIME ONE Stop: 05/30/17 19:49 Last Admin: 05/30/17 20:13 Dose: 5 mg Midazolam HCl (Versed 1 Mg/Ml) Confirm Administered Dose 2 mg .ROUTE .STK-MED ONE Stop: 05/30/17 22:01 Neostigmine Methylsulfate (Neostigmine) Confirm Administered Dose 5 mg .ROUTE .STK-MED ONE Stop: 05/31/17 00:10 Ondansetron HCl (Zofran) Confirm Administered Dose 4 mg .ROUTE .STK-MED ONE Stop: 05/30/17 22:01 Ondansetron HCl (Zofran) 4 mg IVPUSH ONETIME PRN PRN Reason: Nausea/Vomiting Phenylephrine HCl (Phenylephrine In Ns 100 Mcg/Ml) Confirm Administered Dose 1 mg .ROUTE .STK-MED ONE Stop: 05/30/17 22:47 Pneumococcal Polyvalent Vaccine (Pneumovax 23) 0.5 ml IM .ONCE ONE Stop: 05/31/17 08:48 Propofol (Diprivan 20 Ml) Confirm Administered Dose 200 mg .ROUTE .STK-MED ONE Stop: 05/30/17 22:01 Rocuronium [place] (Zemuron) Confirm Administered Dose 50 mg .ROUTE .STK-MED ONE Stop: 05/30/17 22:01 Sodium Chloride (Saline Flush) 10 ml FLUSH ONETIME PRN PRN Reason: IV FLUSH Last Admin: 05/30/17 18:52 Dose: 10 ml Succinylcholine Chloride (Succinylcholine In Ns Pf) Confirm Administered Dose 100 mg .ROUTE .STK-MED ONE Stop: 05/30/17 22:36 - Exam Wound/Incisions: no drainage GI/Abdominal Exam: Soft, Non-Tender - Problem List & Annotations (1) Appendicitis, acute SNOMED Code(s): 11107279 Code(s): K35.80 - UNSPECIFIED ACUTE APPENDICITIS Status: Acute Priority: High Current Visit: Yes Qualifiers: Acute appendicitis type: with localized peritonitis Qualified Code(s): K35.3 - Acute appendicitis with localized peritonitis - Problem List Review Problem List Initiated/Reviewed/Updated: Yes - My Orders Last 24 Hours: Active Orders 24 hr Category Date Time Status Ready for Discharge [RC] PER UNIT ROUTINE Care 06/05/17 08:02 Ordered Regular Diet [DIET] Diet 06/04/17 Lunch Active Remove Patch Med 06/05/17 12:00 Active 0 ea TRDERM Q72H Sodium Chloride 0.9% [Saline Flush] Med 06/04/17 09:44 Active 10 ml FLUSH ASDIRECTED PRN Convert IV to Saline Lock [OM.PC] Routine Oth 06/04/17 09:44 Ordered Medication Orders Furosemide (Lasix) 20 mg IVPUSH DAILY [facility] Last Admin: 06/04/17 08:02 Dose: 20 mg Admin: 06/03/17 09:16 Dose: 20 mg Hydromorphone HCl (Dilaudid) 0.5 mg IVPUSH Q1H PRN PRN Reason: Pain (severe 7-10) Last Admin: 06/02/17 19:21 Dose: 0.5 mg Admin: 06/02/17 13:19 Dose: 0.5 mg Piperacillin Sod/Tazobactam (Sod 4.5 gm/ Sodium Chloride) 100 mls @ 25 mls/hr IV Q8H [facility] Last Admin: 06/05/17 00:43 Dose: 25 mls/hr Infusion: 06/04/17 20:05 Dose: 25 mls/hr Admin: 06/04/17 16:05 Dose: 25 mls/hr Infusion: 06/04/17 12:03 Dose: 25 mls/hr Admin: 06/04/17 08:03 Dose: 25 mls/hr Infusion: 06/04/17 05:48 Dose: 25 mls/hr Admin: 06/04/17 01:48 Dose: 25 mls/hr Infusion: 06/03/17 20:25 Dose: 25 mls/hr Admin: 06/03/17 16:25 Dose: 25 mls/hr Infusion: 06/03/17 12:47 Dose: 25 mls/hr Admin: 06/03/17 08:47 Dose: 25 mls/hr Infusion: 06/03/17 04:53 Dose: 25 mls/hr Admin: 06/03/17 00:53 Dose: 25 mls/hr Infusion: 06/02/17 20:50 Dose: 25 mls/hr Admin: 06/02/17 16:50 Dose: 25 mls/hr Infusion: 06/02/17 12:29 Dose: 25 mls/hr Admin: 06/02/17 08:29 Dose: 25 mls/hr Infusion: 06/02/17 04:36 Dose: 25 mls/hr Admin: 06/02/17 00:36 Dose: 25 mls/hr Infusion: 06/01/17 20:56 Dose: 25 mls/hr Admin: 06/01/17 16:56 Dose: 25 mls/hr Infusion: 06/01/17 12:00 Dose: 25 mls/hr Admin: 06/01/17 08:00 Dose: 25 mls/hr Infusion: 06/01/17 05:41 Dose: 25 mls/hr Admin: 06/01/17 01:41 Dose: 25 mls/hr Infusion: 05/31/17 20:56 Dose: 25 mls/hr Admin: 05/31/17 16:56 Dose: 25 mls/hr Infusion: 05/31/17 12:36 Dose: 25 mls/hr Admin: 05/31/17 08:36 Dose: 25 mls/hr Miscellaneous Information (Remove Patch) 0 ea TRDERM Q72H [facility] Ondansetron HCl (Zofran) 4 mg IVPUSH Q6H PRN PRN Reason: Nausea/Vomiting Last Admin: 06/02/17 08:32 Dose: 4 mg Admin: 06/01/17 20:16 Dose: 4 mg Admin: 06/01/17 10:29 Dose: 4 mg Admin: 05/31/17 10:33 Dose: 4 mg Oxycodone/Acetaminophen (Percocet 325-5 Mg) 2 tab PO Q4H PRN PRN Reason: Pain (moderate 4-6) Last Admin: 06/02/17 08:33 Dose: 2 tab Admin: 06/01/17 19:59 Dose: 2 tab Admin: 06/01/17 08:00 Dose: 2 tab Admin: 06/01/17 03:17 Dose: 2 tab Admin: 05/31/17 19:26 Dose: 2 tab Admin: 05/31/17 15:18 Dose: 2 tab Admin: 05/31/17 05:25 Dose: 2 tab Phenol/Menthol (Chloraseptic) 0 ml MUCMEM Q2H PRN PRN Reason: Sore Throat Last Admin: 06/02/17 17:47 Dose: 3 sprays Admin: 06/02/17 15:11 Dose: 4 sprays Potassium Chloride (Klor-Con M20) 20 meq PO BID [facility] Last Admin: 06/04/17 20:47 Dose: 20 meq Admin: 06/04/17 08:02 Dose: 20 meq Admin: 06/03/17 20:43 Dose: 20 meq Admin: 06/03/17 09:16 Dose: 20 meq Scopolamine (Transderm-Scop) 1.5 mg TRDERM Q72H PRN PRN Reason: Nausea/Vomiting Last Admin: 06/02/17 13:18 Dose: 1.5 mg Sodium Chloride (Saline Flush) 10 ml FLUSH ASDIRECTED PRN PRN Reason: Keep Vein Open Last Admin: 05/30/17 17:22 Dose: 10 ml Sodium Chloride (Saline Flush) 10 ml FLUSH ASDIRECTED PRN PRN Reason: Keep Vein Open - Assessment Assessment (Free Text/Narrative):: Hypokalemia. Normal white blood cell count. Ready for discharge. - Plan Plan (Free Text/Narrative):: Potassium supplementation. We'll continue oral antibiotics. Discharge today. Post discharge instructions provided to the patient verbally and in writing. I specifically asked her to call me if there are any concerns between today's discharge and her clinic appointment which is to be this coming .
[2017-06-05] MEDS: Furosemide 20 MG/2 ML VIAL IVPUSH SCH (08:06)
[2017-06-05] MEDS: Potassium Chloride 20 MEQ Tab.ER PO SCH (08:07)
--- NOTE | 2017-06-05 08:09 | PCM.DCSUM1 ---
Discharge Summary - Hospital Course Free Text/Narrative:: Patient dad nausea and Vomiting which Was Relieved with nasogastric tube and this was due to a mild postoperative ileus which was transient. It lasted for 4 days total but resolved quickly. At that point she made rapid progress. Tolerating a diet and having return of bowel function. Brief History: Right lower quadrant abdominal pain with CT imaging features consistent with perforated appendicitis and abscess. - Discharge Data Discharge Date: 06/05/17 Discharge Disposition: Home, Self-Care 01 Condition: Good - Discharge Diagnosis/Problem(s) (1) Appendicitis, acute SNOMED Code(s): 62471777 ICD Code: K35.80 - UNSPECIFIED ACUTE APPENDICITIS Status: Acute Priority : High Current Visit: Yes Qualifiers: Acute appendicitis type: with localized peritonitis Qualified Code(s): K35.3 - Acute appendicitis with localized peritonitis - Patient Summary/Data Operative Procedure(s) Performed: Laparoscopic exploration followed by conversion to a laparotomy with ileocecectomy and primary stapled [id number] ileal to right colon anastomosis Complications: None Consults: None Hospital Course: See above - Patient Instructions Diet: Usual Diet as Tolerated Activity: As Tolerated Driving: May Drive Today Showering/Bathing: May Shower Wound/Incision Care: Keep Operative Site/Wound Site Clean and Dry Notify Provider of: Fever, Increased Pain, Swelling and Redness, Drainage, Nausea and/or Vomiting - Discharge Plan Home Medications: Home Meds Multivitamin [Multi-Vitamin Daily] 1 tab PO DAILY 05/30/17 [History] Patient Handouts: Laparoscopic Appendectomy, Adult, Care After, [id number], Appendicitis, Zhmf-sq-Yash, Vitamin D Deficiency, [id number] Forms: ED Department Discharge Referrals: Ciara Vieira PA [Primary Care Provider] - Parish Hutchinson MD [Physician] - 06/10/17 (For staple removal. Call my office on Wednesday to schedule appointment.) Amelia Sheikh PA [Physician Service Promoter Salesperson] - (Call for appointment next week. Potassium follow-up as well as vitamin D and cholesterol follow-up.) - Discharge Summary/Plan Comment DC Time >30 min.: No Discharge Summary/Plan Comment: Routine postoperative conductions given to the patient. Potassium supplementation. Outpatient oral antibiotics. - Patient Data Vitals - Most Recent: Last Vital Signs Temp 37.3 C 06/05/17 02:33 Pulse 62 06/05/17 02:33 Resp 17 06/05/17 02:33 BP 121/58 L 06/05/17 02:33 Pulse Ox 96 06/05/17 02:33 Weight - Most Recent: 68.084 kg I&O - Last 24 hours: Intake & Output 06/04/17 06/05/17 06/05/17 22:59 06:59 14:59 Intake Total 900 1000 Output Total 2700 2400 Balance -1800 -1400 Lab Results - Last 24 hrs: Laboratory Results - last 24 hr 06/05/17 06/05/17 Range/Units 06:10 06:10 WBC 8.01 (3.98-10.04) K/mm3 RBC 4.08 (3.98-5.22) M/mm3 Hgb 12.5 (11.2-15.7) gm/L Hct 37.5 (34.1-44.9) % MCV 91.9 (79.4-94.8) fl MCH 30.6 (25.6-32.2) pg MCHC 33.3 (32.2-35.5) g/dl RDW Std Deviation 45.8 (36.4-46.3) fL Plt Count 220 (182-369) K/mm3 MPV 10.5 (9.4-12.3) fl Neut % (Auto) 64.3 (34.0-71.1) % Lymph % (Auto) 25.3 (19.3-51.7) % [place] % (Auto) 8.1 (4.7-12.5) % Eos % (Auto) 1.5 (0.7-5.8) Baso % (Auto) 0.6 (0.1-1.2) % Neut # (Auto) 5.14 (1.56-6.13) K/mm3 Lymph # (Auto) 2.03 (1.18-3.74) K/mm3 [place] # (Auto) 0.65 H (0.24-0.36) K/mm3 Eos # (Auto) 0.12 (0.04-0.36) K/mm3 Baso # (Auto) 0.05 (0.01-0.08) K/mm3 Manual Slide Review Normal smear Sodium 141 (136-145) mEq/L Potassium 3.0 L (3.5-5.1) mEq/L Chloride 102 (98-107) mEq/L Carbon Dioxide 28 (21-32) mEq/L Anion Gap 14.0 (5-15) BUN 7 (7-18) mg/dL Creatinine 0.7 (0.55-1.02) mg/dL Est Cr Clr Drug Dosing 61.68 mL/min Estimated GFR (MDRD) > 60 (>60) mL/min BUN/Creatinine Ratio 10.0 L (14-18) Glucose 98 (80-115) mg/dL Calcium 9.1 (8.5-10.1) mg/dL Med Orders - Current: Current Medications Furosemide (Lasix) 20 mg IVPUSH DAILY [facility] Last Admin: 06/04/17 08:02 Dose: 20 mg Hydromorphone HCl (Dilaudid) 0.5 mg IVPUSH Q1H PRN PRN Reason: Pain (severe 7-10) Last Admin: 06/02/17 19:21 Dose: 0.5 mg Piperacillin Sod/Tazobactam (Sod 4.5 gm/ Sodium Chloride) 100 mls @ 25 mls/hr IV Q8H [facility] Last Admin: 06/05/17 00:43 Dose: 25 mls/hr Miscellaneous Information (Remove Patch) 0 ea TRDERM Q72H [facility] Ondansetron HCl (Zofran) 4 mg IVPUSH Q6H PRN PRN Reason: Nausea/Vomiting Last Admin: 06/02/17 08:32 Dose: 4 mg Oxycodone/Acetaminophen (Percocet 325-5 Mg) 2 tab PO Q4H PRN PRN Reason: Pain (moderate 4-6) Last Admin: 06/02/17 08:33 Dose: 2 tab Phenol/Menthol (Chloraseptic) 0 ml MUCMEM Q2H PRN PRN Reason: Sore Throat Last Admin: 06/02/17 17:47 Dose: 3 sprays Potassium Chloride (Klor-Con M20) 20 meq PO BID [facility] Last Admin: 06/04/17 20:47 Dose: 20 meq Scopolamine (Transderm-Scop) 1.5 mg TRDERM Q72H PRN PRN Reason: Nausea/Vomiting Last Admin: 06/02/17 13:18 Dose: 1.5 mg Sodium Chloride (Saline Flush) 10 ml FLUSH ASDIRECTED PRN PRN Reason: Keep Vein Open Last Admin: 05/30/17 17:22 Dose: 10 ml Sodium Chloride (Saline Flush) 10 ml FLUSH ASDIRECTED PRN PRN Reason: Keep Vein Open Discontinued Medications Bupivacaine HCl/Epinephrine Bitart (Marcaine 0.5%/Epinephrine 1:200,000) Confirm Administered Dose 50 ml .ROUTE .STK-MED ONE Stop: 05/30/17 21:10 Last Admin: 05/30/17 22:36 Dose: 5.5 ml Diatrizoate Meglum/Diatrizoate Sod (Gastrografin 37%) 90 ml PO ONETIME ONE Stop: 05/30/17 18:24 Last Admin: 05/30/17 18:52 Dose: 90 ml Ephedrine Sulfate (Ephedrine In Ns) Confirm Administered Dose 25 mg .ROUTE .STK- MED ONE Stop: 05/30/17 22:45 Fentanyl (Sublimaze) Confirm Administered Dose 250 mcg .ROUTE .STK-MED ONE Stop: 05/30/17 22:01 Fentanyl (Sublimaze) 50 mcg IVPUSH Q5M PRN PRN Reason: Pain Fentanyl (Sublimaze) Confirm Administered Dose 250 mcg .ROUTE .STK-MED ONE Stop: 05/30/17 23:50 Furosemide (Lasix) 20 mg PO ONETIME ONE Stop: 06/02/17 08:29 Last Admin: 06/02/17 08:29 Dose: 20 mg Glycopyrrolate () Confirm Administered Dose 1 mg .ROUTE .STK-MED ONE Stop: 05/31/17 00:10 Hydromorphone HCl (Dilaudid) 0.5 mg IVPUSH Q15M PRN PRN Reason: severe pain Stop: 05/30/17 22:53 Hydromorphone HCl (Dilaudid) 0.25 mg IVPUSH Q15M PRN PRN Reason: severe pain Stop: 05/30/17 23:27 Hydromorphone HCl (Dilaudid) Confirm Administered Dose 1 mg .ROUTE .STK-MED ONE Stop: 05/30/17 23:35 Sodium Chloride (Normal Saline) 1,000 mls @ 999 mls/hr IV ONETIME ONE Stop: 05/30/17 18:04 Last Admin: 05/30/17 17:22 Dose: 999 mls/hr Cefoxitin Sodium 2 gm/ Sodium (Chloride) 100 mls @ 200 mls/hr IV ONETIME ONE Stop: 05/30/17 20:15 Last Admin: 05/30/17 20:22 Dose: Not Given Lactated Ringer's (Ringers, Lactated) 1,000 mls @ 100 mls/hr IV .BOLUS ONE Stop: 05/31/17 05:53 Last Admin: 05/30/17 20:15 Dose: 100 mls/hr Cefoxitin Sodium (Mefoxin In Dextrose,Iso-Osm 2 Gm/50 Ml) Confirm Administered Dose 50 mls @ as directed .ROUTE .STK-MED ONE Stop: 05/30/17 19:57 Last Admin: 05/30/17 20:22 Dose: Not Given Cefoxitin Sodium 2 gm/ Premix 50 mls @ 100 mls/hr IV ONETIME ONE Stop: 05/30/17 20:25 Last Admin: 05/30/17 20:16 Dose: 100 mls/hr Lidocaine HCl (Xylocaine-Mpf 1%) Confirm Administered Dose 4 mls @ as directed .ROUTE .STK-MED ONE Stop: 05/30/17 22:01 Lactated Ringer's (Ringers, Lactated) Confirm Administered Dose 1,000 mls @ as directed .ROUTE .STK-MED ONE Stop: 05/30/17 23:06 Lactated Ringer's (Ringers, Lactated) Confirm Administered Dose 1,000 mls @ as directed .ROUTE .STK-MED ONE Stop: 05/31/17 00:23 Sodium Chloride (Normal Saline) 1,000 mls @ 40 mls/hr IV ASDIRECTED [facility] Last Admin: 06/02/17 12:31 Dose: 40 mls/hr Piperacillin Sod/Tazobactam (Sod 4.5 gm/ Sodium Chloride) 100 mls @ 200 mls/hr IV ONETIME ONE Stop: 05/31/17 01:29 Last Admin: 05/31/17 02:40 Dose: 200 mls/hr Potassium Chloride/Dextrose/Sod Cl (D5 Ns With 20 Meq Kcl) 1,000 mls @ 40 mls/ hr IV ASDIRECTED [facility] Last Admin: 06/04/17 01:50 Dose: 40 mls/hr Iopamidol (Isovue-300 (61%)) 125 ml IVPUSH ONETIME ONE Stop: 05/30/17 18:24 Last Admin: 05/30/17 18:51 Dose: 125 ml Lidocaine/Epinephrine (Xylocaine 1% With Epinephrine 1:100,000) Confirm Administered Dose 20 ml .ROUTE .STK-MED ONE Stop: 05/30/17 21:10 Last Admin: 05/30/17 22:36 Dose: 5.5 ml Metoclopramide HCl (Reglan) 5 mg IVPUSH ONETIME ONE Stop: 05/30/17 19:49 Last Admin: 05/30/17 20:13 Dose: 5 mg Midazolam HCl (Versed 1 Mg/Ml) Confirm Administered Dose 2 mg .ROUTE .STK-MED ONE Stop: 05/30/17 22:01 Neostigmine Methylsulfate (Neostigmine) Confirm Administered Dose 5 mg .ROUTE .STK-MED ONE Stop: 05/31/17 00:10 Ondansetron HCl (Zofran) Confirm Administered Dose 4 mg .ROUTE .STK-MED ONE Stop: 05/30/17 22:01 Ondansetron HCl (Zofran) 4 mg IVPUSH ONETIME PRN PRN Reason: Nausea/Vomiting Phenylephrine HCl (Phenylephrine In Ns 100 Mcg/Ml) Confirm Administered Dose 1 mg .ROUTE .STK-MED ONE Stop: 05/30/17 22:47 Pneumococcal Polyvalent Vaccine (Pneumovax 23) 0.5 ml IM .ONCE ONE Stop: 05/31/17 08:48 Propofol (Diprivan 20 Ml) Confirm Administered Dose 200 mg .ROUTE .STK-MED ONE Stop: 05/30/17 22:01 Rocuronium [place] (Zemuron) Confirm Administered Dose 50 mg .ROUTE .STK-MED ONE Stop: 05/30/17 22:01 Sodium Chloride (Saline Flush) 10 ml FLUSH ONETIME PRN PRN Reason: IV FLUSH Last Admin: 05/30/17 18:52 Dose: 10 ml Succinylcholine Chloride (Succinylcholine In Ns Pf) Confirm Administered Dose 100 mg .ROUTE .STK-MED ONE Stop: 05/30/17 22:36 *Q Meaningful Use (DIS) - VTE *Q VTE Criteria *Q: - Stroke *Q Stroke Criteria *Q: - AMI *Q AMI Criteria *Q:
[2017-06-05 10:34] VITALS: BP 113/62
== END 2017-06-05 09:05 | disposition home or self-care (01) | DRG 330 ==
LOC: JD.ED 15:49 → JD.MS 21:00 → UNDOADMIN 21:00 → JD.SDS 21:12 → JD.MS 05-31 00:47
PROVIDERS: ADMIT Surgery; ATTEND Surgery
PROC: 0DJD4ZZ Inspection of Lower Intestinal Tract, Percutaneous Endoscopic Approach (ICD-10-PCS; principal; 2017-05-30)
PROC: 0DTF0ZZ Resection of Right Large Intestine, Open Approach (ICD-10-PCS; 2017-05-30)
PROC: 0D9670Z Drainage of Stomach with Drainage Device, Via Natural or Artificial Opening (ICD-10-PCS; 2017-06-02)
DX: K35.3 Acute appendicitis with localized peritonitis (principal); K56.7 Ileus, unspecified; N83.202 Unspecified ovarian cyst, left side; E87.6 Hypokalemia; E55.9 Vitamin D deficiency, unspecified; Z87.891 Personal history of nicotine dependence
CPT/HCPCS: 00840; 36415; 74177; 74177-26; 80048; 80053; 81001; 85025; 86140; 88307; 88307-26; 93005; 94667; 94762; 96361; 96365; 96375; 99284; 99285-25; A9270-GY; J0330; J0694; J1170; J2250; J2405; J2543; J2704; J2765; J3010; J3480; J7030; J7040; J7050; J7120; Q9963; Q9967